=== PATIENT | male | born 1960 | race Caucasian/White ===

== ENCOUNTER 2022-09-04 16:48 | Inpatient (IN) ==
--- NOTE | 2022-09-04 17:18 | ED Triage Note ---
Date of Service September 04, 2022 History of Present Illness This patient was briefly evaluated while in triage. An abbreviated physical exam was performed. This patient is a 62-year-old Male with past medical history of pancreatic cancer who presents to the ED for evaluation of vomiting blood. He began v omiting blood this morning. He was seen at the [facility] ER this morning and discharged. He saw his oncologist today and they sent him here. Physical Exam VITALS: Vitals are noted on the nurse's note and reviewed by myself. GENERAL: This is a 62-year-old male, chronically ill appearing, cachectic. SKIN: The skin was without rashes. HEART: Regular rate and rhythm without murmurs gallops or rubs. LUNGS: Clear to auscultation bilaterally without wheezes, rales or rhonchi. ABDOMEN: Positive bowel sounds x 4. Soft, tenderness across the upper abdomen. NEURO: Patient was alert and oriented to person place and time. Initial orders for labs and / or imaging were placed and patient was placed in the waiting area until a bed is available. Please see further documentation for the full ED course.
[2022-09-04] MEDS ORDERED: SODIUM CHLORIDE 0.9% 1000ML 1,000 ML IV ONE (17:26)
[2022-09-04] MEDS ORDERED: PANTOprazole 80 MG in DEXTROSE 5% 100 ML IV STA (17:26)
[2022-09-04] MEDS ORDERED: ONDANSETRON INJ 2 MG/ML 2 ML VIAL IV STA (17:26)
[2022-09-04 17:44] LABS: Basophils # (auto) 0.06 K/uL (0-0.2); Basophils % (auto) 0.4 %; Eosinophils # (auto) 0.03 K/uL (0-0.50); Eosinophils % (auto) 0.2 %; Hematocrit (blood only) 40.8 % (42.0-52.0); Hemoglobin 13.9 g/dl (14.0-18.0); Immature Granulocytes # (auto) 0.14 K/uL (0.01-0.20); Immature Granulocytes % (auto) 0.9 %; Lymphocytes # (auto) 1.12 K/uL (1.2-3.4); Lymphocytes % (auto) 6.8 %; Mean Corpuscular Hemoglobin 27.3 pg (25.0-34.0); Mean Corpuscular Hgb Conc 34.1 g/dL (32.0-36.0); Mean Platelet Volume 11.1 fL (9.4-12.4); Monocytes # (auto) 1.49 K/uL (0.11-0.59); Neutrophils # (auto) 13.63 K/uL (1.40-6.50); Neutrophils % (auto) 82.7 %; Platelet Count 212 K/uL (130-400); RDW Coefficient of Variation 13.4 % (11.5-14.5); RDW Standard Deviation 38.9 fL (36.4-46.3); White Blood Count 16.47 K/ul (4.8-10.8)
[2022-09-04] MEDS ORDERED: MoRPHine SULFATE 4 MG/ML 1 ML CARP\\VIAL IV STA (17:44)
[2022-09-04] MEDS ORDERED: cefTRIAXone SODIUM 2,000 MG/70 ML BAG IV STA (17:45)
[2022-09-04] MEDS ORDERED: MoRPHine SULFATE 4 MG/ML 1 ML CARP\\VIAL IV PRN (17:45)
--- NOTE | 2022-09-04 17:55 | Emergency Department Note ---
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 The patient has a fairly recent diagnosis of pancreatic cancer and things have been worsening. He has had increasing epigastric abdominal pain, he has been more pale. Today he was vomiting blood. Patient had a CT of the abdomen and pelvis today in the outpatient setting. The impression showed significant interval worsening of the pancreatic malignancy along with marked worsening of hepatic metastatic disease, development of pulmonary metastatic disease, and mildly increased neoplastic retroperitoneal adenopathy. 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 The patient has been weak, he has felt worse in the last week or so. No fever, no cough or congestion. He has noticed some mild shortness of breath. He has not had black or bloody stool PMHx/PSHx: See Below SOCIAL HISTORY: See Below. PHYSICAL EXAM: GENERAL: Patient is in no acute distress. HEENT: No acute trauma, normocephalic atraumatic, mucous membranes moist, no nasal congestion. NECK: No stridor, no adenopathy, no meningismus, trachea is midline. LUNGS: Clear to auscultation bilaterally, no wheeze, no rhonchi, breath sounds equal. HEART: Without murmurs gallops or rubs, regular rate and rhythm. ABDOMEN: Soft, moderately tender in the upper portion of the abdomen, no peritonitis EXTREMITIES: No cyanosis or edema, full range of motion of all the joints without pain or difficulty, no signs for acute trauma. NEUROLOGIC: Oriented x 3, no acute motor or sensory deficits, no focal weakness. SKIN: No rash, no jaundice, no diaphoresis. Pale. DIFFERENTIAL DIAGNOSIS: Hematemesis, ulcer, varices, pancreatic cancer, bowel obstruction, anemia, electrolyte imbalance, dehydration, among others. EMERGENCY DEPARTMENT COURSE/PROCEDURES: Prior/Outside records reviewed: Referral notes. ECG per my interpretation: Indication was epigastric pain and vomiting. The ECG shows a sinus tachycardia with a rate of 102. There is some baseline artifact. There is no ST elevation, no PVCs. The QTc is 474. Continuous Cardiac Monitoring per my interpretation: An order was placed for continuous cardiac monitoring. The monitor shows a rate of 99 with normal sinus rhythm. Critical Care Note: I have personally spent 52 minutes of critical care time in the direct management of this patient. This includes bedside care, i nterpretation of diagnostic studies, and testing, discussion with consultants, patient, and family members, and other required patient management activities. This 52 minutes is in excess of all separately billable procedures. MEDICAL DECISION MAKING: There is a moderate leukocytosis, this could be consistent with infection or his pain. There is a mild anemia with a hemoglobin of 13.9. Platelet count was 212. INR slightly elevated at 1.2. The PTT was normal. Sodium was low at 130, no renal failure. There were some LFT elevations consistent with his mets to the liver. Lipase was not elevated. Urinalysis did not show infection. COVID test returned negative. Abdominal and pelvis CT from earlier today showed worsening of the patient's pancreatic cancer. There were mets to the liver and lung. There was a splenic vein thrombosis. Chest x-ray per my review did not show pneumonia or pneumothorax. No free air. On exam, the patient was somewhat pale, he was tender in the epigastrium. The patient received IV saline, 1 L. He was given IV Protonix, IV Zofran and IV morphine, he received IV ceftriaxone as antibiotic coverage. Patient presents with worsening of his pancreatic cancer. He has had hematemesis today. Hospitalization and further work-up/care is warranted. I spoke with the patient and case management, the on-call hospitalist has been consulted. DISPOSITION: Patient's findings and presentation warrant a hospital stay and further work- up/care. Past Med/Surg History Medical History Diabetes mellitus, type II Pacemaker Pancreatic cancer metastasis to liver Surgical History History of removal of cyst (2020) Back of neck Status post fine needle aspiration (08/14/22) Liver, Endoscopic Needle Aspiration + Celiac Plexus [place] [facility] [place] post rotator cuff repair Left Family History Father No problems noted. Mother Cancer patient unsure of type Sister No problems noted. Brother No problems noted. Brother No problems noted. Son No problems noted. Daughter No problems noted. Daughter No problems noted. Social History Smoking Status: Former smoker Tobacco Type: Cigarettes Age Started Using Tobacco: 15; packs per day: 1; Second Hand Exposure: Yes (parents smoked in home and ); Hx Alcohol Use: No Hx Substance Use: No Preferred Language: Finnish Visual Impairment: No Limitations Hearing Ability: Normal Medical Equipment Sales Required: No Beliefs That Will Affect Care: None marital status: Current Living Situation: Spouse and Other Current Living Situation Comment: lives with and son current occupational status: retired current occupation: Retired [employer] How many Children do You have: 3 Feels Safe at Home: Yes caffeine: No Dental Care, Regularly: No Assistive Devices: None Allergies Allergies Allergy/AdvReac Type Severity Reaction Status Date / Time No Known Drug Allergies Allergy Verified 08/27/22 13:12 Home Meds Home Medications Medication Instructions Recorded Confirmed empagliflozin 25 mg tablet 25 mg PO DAILY 08/27/22 09/04/22 (Jardiance) lisinopril 2.5 mg tablet 2.5 mg PO DAILY 08/27/22 09/04/22 lorazepam 0.5 mg tablet 0.25 mg PO BID PRN Anxiety 08/27/22 09/04/22 metformin 850 mg tablet 850 mg PO BID 08/27/22 09/04/22 nitroglycerin 0.4 mg sublingual 0.4 mg sublingual Q5M PRN Chest 08/27/22 09/04/22 tablet Pain ondansetron HCl 4 mg tablet 4 mg PO Q8H PRN Nausea 08/27/22 09/04/22 oxycodone 10 mg tablet 10 mg PO Q4H PRN pain,severe 08/27/22 09/04/22 pantoprazole 40 mg tablet,delayed 40 mg PO DAILY 08/27/22 09/04/22 release capecitabine 500 mg tablet 1,000 mg PO BID 09/04/22 09/04/22 Results & Data (ED) Vital Signs Vital Signs - 24 hr 09/04/22 17:15 09/04/22 18:08 09/04/22 17:36 Temperature 36.8 C Temperature Source Temporal Artery Scan Pulse Rate 100 H 94 H Pulse Rate from SpO2 Sensor Respiratory Rate 18 Respiratory Effort / Characteristics Non-Labored Spontaneous Respiratory Depth Normal Respiratory Pattern Regular Blood Pressure 118/67 Blood Pressure Mean 84 Blood Pressure Position Sitting Pulse Oximetry 98 96 Oxygen Delivery Method Room Air Room Air Sepsis Recent Fever Within 48 Hours No Sepsis New/Unexplained Change in Mental Status N/A Sepsis Action Taken by Nursing No Action Required 09/04/22 17:39 09/04/22 18:00 Temperature Temperature Source Pulse Rate 91 H 92 H Pulse Rate from SpO2 Sensor 91 H 91 H Respiratory Rate 25 H 35 H Respiratory Effort / Characteristics Respiratory Depth Respiratory Pattern Blood Pressure 146/77 H 139/76 Blood Pressure Mean 100 97 Blood Pressure Position Pulse Oximetry 97 95 Oxygen Delivery Method Room Air Room Air Sepsis Recent Fever Within 48 Hours Sepsis New/Unexplained Change in Mental Status Sepsis Action Taken by [facility] Medications Current Medication List: was personally reviewed by me Laboratory Data Attestation: I reviewed the patient's lab results. 09/04/22 17:29 09/04/22 17:29 Lab Results 09/04/22 09/04/22 09/04/22 Range/Units 17:29 17:29 17:29 WBC 16.47 H (4.8-10.8) K/ul RBC 5.10 (4.70-6.10) M/uL Hgb 13.9 L (14.0-18.0) g/dl Hct 40.8 L (42.0-52.0) % MCV 80.0 (80.0-100.0) fL MCH 27.3 (25.0-34.0) pg MCHC 34.1 (32.0-36.0) g/dL RDW Std Deviation 38.9 (36.4-46.3) fL RDW Coeff of [place] 13.4 (11.5-14.5) % Plt Count 212 (130-400) K/uL MPV 11.1 (9.4-12.4) fL Immature Gran % (Auto) 0.9 % Neut % (Auto) 82.7 % Lymph % (Auto) 6.8 % [place] % (Auto) 9.0 % Eos % (Auto) 0.2 % Baso % (Auto) 0.4 % Neut # (Auto) 13.63 H (1.40-6.50) K/uL Lymph # (Auto) 1.12 L (1.2-3.4) K/uL [place] # (Auto) 1.49 H (0.11-0.59) K/uL Eos # (Auto) 0.03 (0-0.50) K/uL Baso # (Auto) 0.06 (0-0.2) K/uL Immature Gran # (Auto) 0.14 (0.01-0.20) K/uL PT (9.0-12.0) Seconds INR (0.9-1.1) APTT (21.0-31.0) Seconds PTT Ratio Sodium 130 L (136-145) mmol/L Potassium 4.5 (3.5-5.1) mmol/L Chloride 94 L (98-107) mmol/L Carbon Dioxide 26 (21-32) mmol/L Anion Gap 10 (3-11) BUN 16 (6-23) mg/dl Creatinine 0.51 L (0.6-1.4) mg/dl Est Cr Clr Drug Dosing 133.8 ml/min Est GFR ( Amer) 132.6 ml/min Est GFR (Non-Af Amer) 114.4 ml/min BUN/Creatinine Ratio 31.4 H (10-20) Glucose 168 H (70-99(Fasting)) mg/dl Calcium 9.4 (8.5-10.1) mg/dl Total Bilirubin 2.0 H (0.2-1.0) mg/dl AST 50 H (13-39) U/L ALT 34 (7-52) U/L Alkaline Phosphatase 323 H (34-104) U/L Total Protein 7.8 (6.0-8.3) gm/dl Albumin 3.8 (3.4-5.0) gm/dl Globulin 4.0 (2.5-4.0) gm/dl Albumin/Globulin Ratio 1.0 (0.9-2) Lipase 33 (11-82) U/L SARS-CoV-2, RNA, NAAT (NEGATIVE) Blood Type B Positive Antibody Screen NEGATIVE 09/04/22 09/04/22 Range/Units 17:29 17:36 WBC (4.8-10.8) K/ul RBC (4.70-6.10) M/uL Hgb (14.0-18.0) g/dl Hct (42.0-52.0) % MCV (80.0-100.0) fL MCH (25.0-34.0) pg MCHC (32.0-36.0) g/dL RDW Std Deviation (36.4-46.3) fL RDW Coeff of [place] (11.5-14.5) % Plt Count (130-400) K/uL MPV (9.4-12.4) fL Immature Gran % (Auto) % Neut % (Auto) % Lymph % (Auto) % [place] % (Auto) % Eos % (Auto) % Baso % (Auto) % Neut # (Auto) (1.40-6.50) K/uL Lymph # (Auto) (1.2-3.4) K/uL [place] # (Auto) (0.11-0.59) K/uL Eos # (Auto) (0-0.50) K/uL Baso # (Auto) (0-0.2) K/uL Immature Gran # (Auto) (0.01-0.20) K/uL PT 13.0 H (9.0-12.0) Seconds INR 1.2 H (0.9-1.1) APTT 28.6 (21.0-31.0) Seconds PTT Ratio 1.0 Sodium (136-145) mmol/L Potassium (3.5-5.1) mmol/L Chloride (98-107) mmol/L Carbon Dioxide (21-32) mmol/L Anion Gap (3-11) BUN (6-23) mg/dl Creatinine (0.6-1.4) mg/dl Est Cr Clr Drug Dosing ml/min Est GFR ( Amer) ml/min Est GFR (Non-Af Amer) ml/min BUN/Creatinine Ratio (10-20) Glucose (70-99(Fasting)) mg/dl Calcium (8.5-10.1) mg/dl Total Bilirubin (0.2-1.0) mg/dl AST (13-39) U/L ALT (7-52) U/L Alkaline Phosphatase (34-104) U/L Total Protein (6.0-8.3) gm/dl Albumin (3.4-5.0) gm/dl Globulin (2.5-4.0) gm/dl Albumin/Globulin Ratio (0.9-2) Lipase (11-82) U/L SARS-CoV-2, RNA, NAAT NEGATIVE (NEGATIVE) Blood Type Antibody Screen Administered Medications Hydromorphone HCl (Hydromorphone Inj 1 Mg/Ml Syringe) 1 mg IV Q4H PRN PRN Reason: Severe Pain Stop: 09/18/22 20:37 Last Admin: 09/05/22 01:25 Dose: 1 mg Documented By: SRIKANTH Pantoprazole Sodium 40 mg/ (Dextrose) 100 mls @ 20 mls/hr IV Q5H JOSE RAUL Stop: 10/04/22 20:37 Last Admin: 09/04/22 21:54 Dose: 8 mg/hr, 20 mls/hr Documented By: SRIKANTH Sodium Chloride (Nss 1000ml) 1,000 mls @ 80 mls/hr IV .[id number] JOSE RAUL Stop: 09/05/22 21:37 Last Admin: 09/04/22 21:56 Dose: 80 mls/hr Documented By: SRIKANTH Insulin Aspart (Insulin Aspart Per Unit) 0 units SC ACHS JOSE RAUL Stop: 10/04/22 20:59 Last Admin: 09/04/22 21:04 Dose: Not Given Documented By: SRIKANTH Discontinued Medications Gabapentin (Gabapentin 300 Mg Cap) 300 mg PO NOW STA Stop: 09/04/22 19:33 Last Admin: 09/04/22 21:54 Dose: 300 mg Documented By: SRIKANTH Hydromorphone HCl (Hydromorphone Inj 1 Mg/Ml Syringe) 1 mg IV NOW STA Stop: 09/04/22 19:33 Last Admin: 09/04/22 19:41 Dose: 1 mg Documented By: JOSAFAT Sodium Chloride (Nss 1000ml) 1,000 mls @ 999 mls/hr IV .Q1H1M ONE Stop: 09/04/22 18:26 Last Infusion: 09/04/22 18:39 Dose: 0 mls/hr Documented By: Admin: 09/04/22 17:53 Dose: 999 mls/hr Documented By: CATALINA Pantoprazole Sodium 80 mg/ (Dextrose) 100 mls @ 400 mls/hr IV ONE STA Stop: 09/04/22 17:40 Last Infusion: 09/04/22 18:39 Dose: 0 mls/hr Documented By: Admin: 09/04/22 18:22 Dose: 400 mls/hr Documented By: NH Ceftriaxone Sodium (Rocephin) 2,000 mg in 70 mls @ 140 mls/hr IV NOW STA Stop: 09/04/22 18:14 Last Infusion: 09/04/22 18:39 Dose: 0 mls/hr Documented By: Admin: 09/04/22 17:53 Dose: 140 mls/hr Documented By: NH Morphine Sulfate (Morphine Sulfate 4 Mg/Ml 1 Ml Carp\Vial) 4 mg IV NOW STA Stop: 09/04/22 17:45 Last Admin: 09/04/22 17:53 Dose: 4 mg Documented By: NH Ondansetron HCl (Ondansetron Inj 2 Mg/Ml 2 Ml Vial) 4 mg IV NOW STA Stop: 09/04/22 17:27 Last Admin: 09/04/22 17:52 Dose: 4 mg Documented By: NH Imaging Data Radiologist's Impression: Chest X-Ray 09/04/22 17:19 XR chest 1V portable CLINICAL HISTORY: Hematemesis TECHNIQUE: Single frontal radiograph of the chest was obtained. Comparison: Comparison is made to PET/CT to 09/09/2022 FINDINGS: Dual lead pacemaker is seen. The cardiomediastinal silhouette is normal. The lungs are clear. No evidence of pleural effusion or pneumothorax. IMPRESSION: No acute chest disease. ACT 112: Negative or not required by law. Electronically signed by: Dain White M.D. 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
[2022-09-04 18:06] LABS: Albumin Level 3.8 gm/dl (3.4-5.0); BUN Creatinine Ratio 31.4 (10-20); Calcium 9.4 mg/dl (8.5-10.1); Creatinine Clr Calc Pharmacy 133.8 ml/min; Est GFR (African American) 132.6 ml/min; Est GFR (Non-African American) 114.4 ml/min; Potassium 4.5 mmol/L (3.5-5.1); Total Protein 7.8 gm/dl (6.0-8.3)
--- NOTE | 2022-09-04 18:15 | XRay Report ---
XR chest 1V portable CLINICAL HISTORY: Hematemesis TECHNIQUE: Single frontal radiograph of the chest was obtained. Comparison: Comparison is made to PET/CT to 09/09/2022 FINDINGS: Dual lead pacemaker is seen. The cardiomediastinal silhouette is normal. The lungs are clear. No evid ence of pleural effusion or pneumothorax. IMPRESSION: No acute chest disease. ACT 112: Negative or not required by law. Electronically signed by: Dain White M.D. 09/04/2022 6:13 PM
[2022-09-04 18:16] LABS: INR 1.2 (0.9-1.1); Partial Thromboplastin Time 28.6 Seconds (21.0-31.0)
--- NOTE | 2022-09-04 18:36 | History & Physical Report ---
Date of Service September 04, 2022 Assessment & Plan (1) Hematemesis: Plan: Patient is 62-year-old male with PMH recently diagnosed pancreatic cancer metastasis to liver diagnosed in 07/2022, DM II, s/p pacemaker presented to ER with complaint of episode of hematemesis today. Ongoing nausea, vomiting, decreased appetite, upper abdominal pain since 06/2022. Per review of [facility] ER reports. Patient's provides copy: 09/04/2022 CT abdomen pelvis with IV contrast : "Significant interval worsening of the pancreas shins primary pancreatic malignancy along with marked worsening of hepatic metastatic disease, development of pulmonary metastatic disease, and mildly increased neoplastic retroperitoneal adenopathy. Thrombosis of the splenic vein is again present mildly increased from previously." (Copy of report from [facility] ER) 09/04/2022 copy of labs with WBC: 14.5, H/H: 13.1/38.2, PLT: 191, NA: 140, lactate: 1.4, T. bili: 1.6, AST: 56, ALT: 36, alk phos: 310, lipase: 33 In ER afebrile, vital stable. H/H 13.9/40, PLT: 212, INR: 1.2, BUN: 16, Cr: 0.5, T. bili: 2.0, AST: 50, ALT: 34, alk phos: 323 In ER given 1L NSS, Protonix, Rocephin, morphine total 8 mg IV Continue Protonix IV Start gabapentin. Oxycodone as needed moderate pain, Dilaudid as needed severe pain Zofran as needed N.p.o. Gentle IVF Leukocytosis likely secondary to underlying tumor. Patient denies fever, chills, urinary symptoms. We will hold on additional antibiotics at this time Patient voices understanding of his current condition and prognosis. Is willing to have scope if necessary. Would like to avoid other invasive procedures CBC, CMP in a.m. (2) Abdominal pain: (3) Splenic vein thrombosis: (4) Pancreatic cancer: Plan: Recent diagnosis pancreatic cancer with metastasis to liver in 07/2022 Is following with oncologist, Dr. Lubin in [place]. Radiation oncology at [facility], Dr. Man Is to start receiving palliative chemotherapy and radiation on 09/09/22. Patient brought his capecitabine with him Palliative care consult Will need to consider anticoagulation. Hold currently with episode hematemesis (5) Hyponatremia: Plan: Corrected sodium of 131 Gentle IVF Monitor (6) Diabetes mellitus, type II: Plan: Has not been taking medications secondary to N/V/abdominal pain, decreased oral intake Hold home oral diabetes medicine NovoLog sliding scale per protocol A1c in a.m. (7) HTN (hypertension): Plan: Not been taking BP medication secondary to poor oral intake BP stable Hold lisinopril (8) Pacemaker: Plan: Pacemaker in place DVT Prophylaxis SCDs for now DNR/DNI as per discussion with pt Follows with PCP: [facility] for routine care Pt was seen and care coordinated with Dr Sainz. See addendum I spent a total of 75 minutes reviewing notes, outpatient records, labs, medication, coordinating, documenting and providing care for this patient exc luding time spent in the performance of separately billed services. History of Present Illness Chief Complaint: Hematemesis Primary Care Provider: Annabelle Hale PA-C Patient is 62-year-old male with PMH recently diagnosed pancreatic cancer metastasis to liver diagnosed in 07/2022, DM II, s/p pacemaker presented to ER with complaint of episode of hematemesis today. History obtained from patient, patient's and chart review. Patient states has been having nausea, intermittent vomiting, upper abdominal pain since June 2022. Often has dry heaves. Lost 35 pounds since 06/2022. He states he saw GI, Dr. Lara in [place]. reports he had a EUS to confirm diagnosis. 2 days ago did not have any vomiting, yesterday had several episodes of vomiting. He started taking oxycodone for abdominal pain. This morning had episode of vomiting with noted red blood in emesis. No further hematemesis. He has been having worsening upper abdominal pain. Not been eating or drinking. He has not been taking any medications except for oxycodone. He tried taking Zofran several days ago. Is following with oncologist, Dr. Lubin from. Following with radiation oncology at [facility], Dr. Man. Is to start receiving palliative chemotherapy and radiation on 09/09/22. Denies fever/chills, diaphoresis, melena, hematochezia, diarrhea, constipation, DUPREE, dizziness, syncope, vision changes, neck pain, CP, SOB, orthopnea, palpitations, cough, sore throat, choking, otalgia, rhinorrhea, extremity weakness, extremity edema, rashes, urinary symptoms. Today was seen at [facility] ER and had CT abdomen pelvis with IV contrast. brings copy of CT abdomen pelvis report with Impression "Significant interval worsening of the pancreas shins primary pancreatic malignancy along with marked worsening of hepatic metastatic disease, development of pulmonary metastatic disease, and mildly increased neoplastic retroperitoneal adenopathy. Thrombosis of the splenic vein is again present mildly increased from previously. Also copy of labs with WBC: 14.5, H/H: 13.1/38.2, PLT: 191, NA: 140, lactate: 1.4, T. bili: 1.6, AST: 56, ALT: 36, alk phos: 310 Patient states that they offered to transfer him to tertiary care facility however he denied. He had follow-up with his oncologist today who had recommended coming to an [facility]. Patient states is to have palliative care appointment tomorrow. Allergies Allergy/AdvReac Type Severity Reaction Status Date / Time No Known Drug Allergies Allergy Verified 08/27/22 13:12 Home Medications Medication Instructions Recorded Confirmed Type empagliflozin 25 mg tablet 25 mg PO DAILY 08/27/22 09/04/22 History (Jardiance) lisinopril 2.5 mg tablet 2.5 mg PO DAILY 08/27/22 09/04/22 History lorazepam 0.5 mg tablet 0.25 mg PO BID PRN Anxiety 08/27/22 09/04/22 History metformin 850 mg tablet 850 mg PO BID 08/27/22 09/04/22 History nitroglycerin 0.4 mg sublingual 0.4 mg sublingual Q5M PRN Chest 08/27/22 09/04/22 History tablet Pain ondansetron HCl 4 mg tablet 4 mg PO Q8H PRN Nausea 08/27/22 09/04/22 History oxycodone 10 mg tablet 10 mg PO Q4H PRN pain,severe 08/27/22 09/04/22 History pantoprazole 40 mg tablet,delayed 40 mg PO DAILY 08/27/22 09/04/22 History release capecitabine 500 mg tablet 1,000 mg PO BID 09/04/22 09/04/22 History Past Med/Surg History Medical History Diabetes mellitus, type II Pacemaker Pancreatic cancer metastasis to liver Surgical History History of removal of cyst (2020) Back of neck Status post fine needle aspiration (08/14/22) Liver, Endoscopic Needle Aspiration + Celiac Plexus Neurolysis Dr. Tricia Elam at [facility] Status post rotator cuff repair Left Family History Father No problems noted. Mother Cancer patient unsure of type Sister No problems noted. Brother No problems noted. Brother No problems noted. Son No problems noted. Daughter No problems noted. Daughter No problems noted. Social History Smoking Status: Former smoker Tobacco Type: Cigarettes Age Started Using Tobacco: 15; packs per day: 1; Second Hand Exposure: Yes (parents smoked in home and ); Hx Alcohol Use: No Hx Substance Use: No Preferred Language: Peruvian Visual Impairment: No Limitations Hearing Ability: Normal Wool Hat Hydraulicker Required: No Beliefs That Will Affect Care: None marital status: Current Living Situation: Spouse current occupational status: retired current occupation: Retired [employer] How many Children do You have: 3 Feels Safe at Home: Yes caffeine: No Dental Care, Regularly: No Assistive Devices: Glasses Review of Systems Review of Systems: All systems reviewed & are unremarkable except as noted in HPI & below Physical Exam Physical Exam: General: chronic ill appearing male, appears older than stated age, in mild distress secondary to abdominal pain, WDWN Head: normocephalic, atraumatic Eyes: conjunctiva non-injected, anicteric ENT: normal inspection external ears, nose, mucous membranes dry Neck: supple, trachea midline Lungs: clear, no respiratory distress, no wheezing/rhonchi/rales CV: RRR, no murmur, no pretibial edema Abd: normal BS, soft, +tenderness to palpation RUQ, epigastric, LUQ Ext: no cyanosis, no calf tenderness Neuro: A&O x 3, no focal deficits noted, normal affect Skin: warm, dry Results & Data Results & Data ([place]) Vital Signs (Past 12 Hours) Vital Signs Temp Pulse Resp BP Pulse Ox O2 Del Method 09/04/22 18:00 92 H 35 H 139/76 95 Room Air 09/04/22 17:39 91 H 25 H 146/77 H 97 Room Air 09/04/22 17:36 94 H 09/04/22 18:08 96 Room Air 09/04/22 17:15 36.8 C 100 H 18 118/67 98 Room Air Laboratory Results Short CBC 09/04/22 Range/Units 17:29 WBC 16.47 H (4.8-10.8) K/ul Hgb 13.9 L (14.0-18.0) g/dl Hct 40.8 L (42.0-52.0) % Plt Count 212 (130-400) K/uL BMP 09/04/22 17:29 Sodium 130 L Potassium 4.5 Chloride 94 L Carbon Dioxide 26 BUN 16 Creatinine 0.51 L Glucose 168 H Calcium 9.4 Liver Function 09/04/22 Range/Units 17:29 Total Bilirubin 2.0 H (0.2-1.0) mg/dl AST 50 H (13-39) U/L ALT 34 (7-52) U/L Alkaline Phosphatase 323 H (34-104) U/L Albumin 3.8 (3.4-5.0) gm/dl Diagnostic Findings Chest X-Ray 09/04/22 17:19 XR chest 1V portable CLINICAL HISTORY: Hematemesis TECHNIQUE: Single frontal radiograph of the chest was obtained. Comparison: Comparison is made to PET/CT to 09/09/2022 FINDINGS: Dual lead pacemaker is seen. The cardiomediastinal silhouette is normal. The lungs are clear. No evidence of pleural effusion or pneumothorax. IMPRESSION: No acute chest disease. ACT 112: Negative or not required by law. Electronically signed by: Dain White M.D. 09/04/2022 6:13 PM Supervising Physician Co-Signing Physician Notes I have seen and examined the patient and have discussed the case with the provider above. I agree with the assessment and plan as stated. Mr. Lagunas is a 62-year-old man with a recent diagnosis of metastatic pancreatic cancer. He reports ongoing bloating in his abdomen that is progressively worse and is planned to start chemotherapy and radiation on Friday. He has his oral chemo medicine with him today. The patient states that he has been using oxycodone for the pain and that he is now getting a burning sensation down his bilateral lateral hips. The pain is mostly in his back and there is upper abdominal pain as well. This morning he vomited blood one time and it was not persistent. At this time he is not nauseous but reporting some pain. He is open to doing an endoscopy but realizes the gravity of the situation. He is interested in palliative consultation. On physical exam he is ill-appearing and well-nourished well-developed. He is in no acute distress. There is significant upper abdominal pain and slight distention with no tenderness palpation of his lower abdomen. Exam is otherwise unremarkable. Work-up reveals a white blood cell count of 16,000, H&H of 14/41, normal platelets. INR is 1.2, sodium is 130, chloride 94, BUN 16, creatinine 0.51. AST is 50 ALT 34 total bilirubin is 2. Alk phos is 323. Imaging includes a chest x-ray revealing no acute chest disease. Outpatient records from [facility] ER revealed CT report showing pancreatic tail mass and a splenic vein thrombosis. 1. Metastatic pancreatic cancer with hematemesis 2. Splenic vein thrombosis, acute, secondary to malignancy 3. hyponatremia Admit patient to medicine with main goal of controlling symptoms of pain, nausea and any other discomfort. He will meet with palliative tomorrow to discuss goals of care. For now n.p.o. with IV fluids for support pending GI consult. Currently has no need for blood transfusion and has no evidence of anemia from blood loss. Will trend CBC in a.m. Will monitor on telemetry. Splenic vein thrombosis should be treated with anticoagulant therapy which is contraindicated in the setting of hematemesis. Hyponatremia is likely reflective of his poor p.o. intake today and possibly other days. Trend BMP in a.m. after IV fluids. Leukocytosis is likely reflection of tumor burden as opposed to any infection. He was given 1 dose of Rocephin in the ER. There were no infectious symptoms at this time. Hold additional antibiotics. DO Alistair
[2022-09-04] MEDS ORDERED: HYDROmorphone INJ 1 MG/ML SYRINGE IV STA (19:32)
[2022-09-04] MEDS ORDERED: GABAPENTIN 300 MG CAP PO STA (19:32)
[2022-09-04] MEDS ORDERED: GLUCAGON FOR INJ 1 MG VIAL SQ PRN (20:38)
[2022-09-04] MEDS ORDERED: POLYETHYLENE (MIRALAX) 17 GM PACK PO PRN (20:38)
[2022-09-04] MEDS ORDERED: ACETAMINOPHEN 325 MG TAB PO PRN (20:38)
[2022-09-04] MEDS ORDERED: GLUCOSE 40% GEL 15 GM TUBE PO PRN (20:38)
[2022-09-04] MEDS ORDERED: oxyCODONE HCL IR 5 MG TAB (IMMEDIATE RELEASE) PO PRN (20:38)
[2022-09-04] MEDS ORDERED: GLUCOSE 10 TAB/TUBE PO PRN (20:38)
[2022-09-04] MEDS ORDERED: CARBOHYDRATES FOR HYPOGLYCEMIA PO PRN (20:38)
[2022-09-04] MEDS ORDERED: DEXTROSE 50% 50 ML SYRINGE IV PRN (20:38)
[2022-09-04] MEDS ORDERED: ONDANSETRON INJ 2 MG/ML 2 ML VIAL IV PRN (20:38)
[2022-09-04] MEDS: INSULIN ASPART PER UNIT SC SCH (21:04)
[2022-09-04] MEDS: PANTOprazole 40 MG in DEXTROSE 5% 100 ML IV SCH (21:54)
[2022-09-04] MEDS: SODIUM CHLORIDE 0.9% 1000ML 1,000 ML IV SCH (21:56)
[2022-09-04 22:24] LABS: Appearance Urine Clear (Clear); Bacteria Urine Automated Negative (Negative); Blood Urine Negative (Negative); Color Urine Orange; Glucose Urine UA Negative (Negative); Ketones Urine 3+ (Negative); Leukocyte Esterase Urine Trace (Negative); Nitrite Urine Positive (Negative); Protein Urine 1+ (Negative); RBC Urine Automated 0-4 /hpf (0-4); Specific Gravity Urine > 1.045 (1.000-1.030); Urobilinogen Urine Positive (Negative); pH Urine 6.5 (4.5-7.5)
[2022-09-04 22:25] LABS: Bilirubin Urine 2+ (Negative)
[2022-09-05] MEDS: HYDROmorphone INJ 1 MG/ML SYRINGE IV PRN ×6 (01:25→22:15)
[2022-09-05] MEDS: PANTOprazole 40 MG in DEXTROSE 5% 100 ML IV SCH ×5 (02:25→23:14)
[2022-09-05] MEDS: GABAPENTIN 300 MG CAP PO SCH ×2 (07:47→20:12)
[2022-09-05 07:53] LABS: Basophils # (auto) 0.03 K/uL (0-0.2); Basophils % (auto) 0.3 %; Eosinophils # (auto) 0.05 K/uL (0-0.50); Eosinophils % (auto) 0.5 %; Hematocrit (blood only) 33.5 % (42.0-52.0); Hemoglobin 11.3 g/dl (14.0-18.0); Immature Granulocytes # (auto) 0.06 K/uL (0.01-0.20); Immature Granulocytes % (auto) 0.6 %; Lymphocytes # (auto) 0.89 K/uL (1.2-3.4); Lymphocytes % (auto) 9.1 %; Mean Corpuscular Hgb Conc 33.7 g/dL (32.0-36.0); Monocytes # (auto) 0.87 K/uL (0.11-0.59); Monocytes % (auto) 8.9 %; Neutrophils # (auto) 7.84 K/uL (1.40-6.50); Neutrophils % (auto) 80.6 %; Platelet Count 149 K/uL (130-400); RDW Coefficient of Variation 13.6 % (11.5-14.5); RDW Standard Deviation 39.3 fL (36.4-46.3); Red Blood Count 4.19 M/uL (4.70-6.10); White Blood Count 9.74 K/ul (4.8-10.8)
[2022-09-05] MEDS: INSULIN ASPART PER UNIT SC SCH ×4 (08:09→20:11)
[2022-09-05 08:29] LABS: Albumin Globulin Ratio 0.8 (0.9-2); Albumin Level 2.6 gm/dl (3.4-5.0); BUN Creatinine Ratio 26.7 (10-20); Bilirubin Direct 0.7 mg/dl (0-0.2); Bilirubin,Total 1.3 mg/dl (0.2-1.0); Calcium 8.1 mg/dl (8.5-10.1); Creatinine Clr Calc Pharmacy 151.6 ml/min; Est GFR (African American) 139.6 ml/min; Est GFR (Non-African American) 120.4 ml/min; Globulin 3.4 gm/dl (2.5-4.0)
--- NOTE | 2022-09-05 10:02 | Gastrointestinal Consultation ---
Date of Consultation September 05, 2022 History of Present Illness Reason for Consultation: Hematemesis Requesting Physician: Sabino Attending Physician: Tyra Young MD History of Present Illness Mr. Michael Lagunas is a 62 yr old male pt of MEGGAN Nelson a hx of metastatic pancreatic cancer which was dx'ed by liver bx at [facility] He reports ongoing upper abd pain across both sides along the lower ribs, radiating to the mid back, also bloating. Chemotherapy and radiation are planned to begin on Friday. Yesterday morning, he felt nauseated which he thinks is from pain pills. He had dry heaving and brought up a little bit of liquid with that he thinks probably about a shot glass size amount of bright red blood. He did not have any change in his abdominal pain at the time of the emesis. On arrival, hemoglobin was 13.9->11.3 this morning. BUN has remained normal. Na is 130. INR is 1.1. He is not on any antiplatelet or anticoagulants. He denies any red/black BMs. Allergies Allergy/AdvReac Type Severity Reaction Status Date / Time No Known Drug Allergies Allergy Verified 08/27/22 13:12 Home Medications Medication Instructions Recorded Confirmed Type empagliflozin 25 mg tablet 25 mg PO DAILY 08/27/22 09/04/22 History (Jardiance) lisinopril 2.5 mg tablet 2.5 mg PO DAILY 08/27/22 09/04/22 History lorazepam 0.5 mg tablet 0.25 mg PO BID PRN Anxiety 08/27/22 09/04/22 History metformin 850 mg tablet 850 mg PO BID 08/27/22 09/04/22 History nitroglycerin 0.4 mg sublingual 0.4 mg sublingual Q5M PRN Chest 08/27/22 09/04/22 History tablet Pain ondansetron HCl 4 mg tablet 4 mg PO Q8H PRN Nausea 08/27/22 09/04/22 History oxycodone 10 mg tablet 10 mg PO Q4H PRN pain,severe 08/27/22 09/04/22 History pantoprazole 40 mg tablet,delayed 40 mg PO DAILY 08/27/22 09/04/22 History release capecitabine 500 mg tablet 1,000 mg PO BID 09/04/22 09/04/22 History Patient History Medical History Diabetes mellitus, type II Pacemaker Pancreatic cancer metastasis to liver Surgical History History of removal of cyst (2020) Back of neck Status post fine needle aspiration (08/14/22) Liver, Endoscopic Needle Aspiration + Celiac Plexus Neurolysis Dr. Tricia Elam at [facility] Status post rotator cuff repair Left Family History Father No problems noted. Mother Cancer patient unsure of type Sister No problems noted. Brother No problems noted. Brother No problems noted. Son No problems noted. Daughter No problems noted. Daughter No problems noted. Social History Smoking Status: Former smoker Tobacco Type: Cigarettes Age Started Using Tobacco: 15; packs per day: 1; Second Hand Exposure: Yes (parents smoked in home and ); Hx Alcohol Use: No Hx Substance Use: No Preferred Language: Georgian Visual Impairment: No Limitations Hearing Ability: Normal Account Processor Required: No Beliefs That Will Affect Care: None marital status: Current Living Situation: Spouse and Other Current Living Situation Comment: lives with and son current occupational status: retired current occupation: Retired [employer] How many Children do You have: 3 Feels Safe at Home: Yes caffeine: No Dental Care, Regularly: No Assistive Devices: None Results & Data ([facility]) Vital Signs (Past 12 Hours) Vital Signs Temp Pulse Pulse Resp BP Pulse Ox O2 Del Method 09/05/22 08:20 36.9 C 86 18 126/73 95 Room Air 09/05/22 07:58 Room Air 09/05/22 07:18 88 09/05/22 02:54 36.9 C 89 16 135/69 96 Room Air 09/04/22 23:14 37.2 C 86 18 145/74 H 97 Room Air 09/04/22 22:15 85
--- NOTE | 2022-09-05 10:08 | Electrocardiogram Report ---
Test Reason : Blood Pressure : / mmHG Vent. Rate : 102 BPM Atrial Rate : 102 BPM P-R Int : 142 ms QRS Dur : 078 ms QT Int : 364 ms P-R-T Axes : 061 040 060 degrees QTc Int : 474 ms Poor data quality, interpretation may be adversely affected Sinus tachycardia Otherwise normal ECG No previous ECGs available Confirmed by Ata Brewer ([id number]) on 09/05/2022 10:08:37 AM Referred By: REFERRED SELF Confirmed By:Tyler Brewer
[2022-09-05] MEDS: SODIUM CHLORIDE 0.9% 1000ML 1,000 ML IV SCH (10:17)
--- NOTE | 2022-09-05 11:10 | Gastrointestinal Consultation ---
Date of Consultation September 05, 2022 Assessment & Plan (1) Hematemesis: -Continue IV Protonix gtt -Keep NPO for EGD today -Continue to monitor H/H and for further s/s of GI bleeding (2) Pancreatic cancer: With mets noted in liver, lungs, & retroperitoneum. -Palliative consult pending -Follows with oncology History of Present Illness Reason for Consultation: Hematemesis Attending Physician: Tyra Young MD History of Present Illness Patient is a 62 yo male with PMH of widely metastatic pancreatic cancer found in July 2022. He presented to the ED with an episode of hematemesis. This has not happened again. He notes approximately 1 oz of bloody emesis. He has been having a myriad of GI symptoms since prior to his diagnosis including nausea, intermittent vomiting, & epigastric pain. There has been significant weight loss. He receives his GI care through [facility] at [place]. He had an EUS 2 weeks ago to confirm his diagnosis of pancreatic cancer. He was supposed to meet with his oncologist today and had plans for palliative chemo & radiation to begin next week. He was seen yesterday at the ER in [facility] and was found to have worsening metastatic disease. Originally his disease had metastasized to the liver, but based on updated imaging it appears he has had in terval worsening of his pancreatic malignancy with hepatic mets, pulmonary mets, & increased neoplastic retroperitoneal adenopathy. There was finding of a splenic vein thrombosis as well. [facility] wanted to transfer him to a tertiary facility. He declined. His oncologist recommended admission when he presented for his appointment. He was planned for palliative care evaluation on 09/05/22. H/H 11.3/33.5. BUN 12/Cr 0.45. No heartburn or reflux. He takes Protonix 40 mg daily at home. Allergies Allergy/AdvReac Type Severity Reaction Status Date / Time No Known Drug Allergies Allergy Verified 08/27/22 13:12 Home Medications Medication Instructions Recorded Confirmed Type empagliflozin 25 mg tablet 25 mg PO DAILY 08/27/22 09/04/22 History (Jardiance) lisinopril 2.5 mg tablet 2.5 mg PO DAILY 08/27/22 09/04/22 History lorazepam 0.5 mg tablet 0.25 mg PO BID PRN Anxiety 08/27/22 09/04/22 History metformin 850 mg tablet 850 mg PO BID 08/27/22 09/04/22 History nitroglycerin 0.4 mg sublingual 0.4 mg sublingual Q5M PRN Chest 08/27/2209/04 History tablet Pain ondansetron HCl 4 mg tablet 4 mg PO Q8H PRN Nausea 08/27/22 09/04/22 History oxycodone 10 mg tablet 10 mg PO Q4H PRN pain,severe 08/27/22 09/04/22 History pantoprazole 40 mg tablet,delayed 40 mg PO DAILY 08/27/22 09/04/22 History release capecitabine 500 mg tablet 1,000 mg PO BID 09/04/22 09/04/22 History Patient History Medical History Diabetes mellitus, type II Pacemaker Pancreatic cancer metastasis to liver Surgical History History of removal of cyst (2020) Back of neck Status post fine needle aspiration (08/14/22) Liver, Endoscopic Needle Aspiration + Celiac Plexus Neurolysis Dr. Tricia Elam at [facility] Status post rotator cuff repair Left Family History Father No problems noted. Mother Cancer patient unsure of type Sister No problems noted. Brother No problems noted. Brother No problems noted. Son No problems noted. Daughter No problems noted. Daughter No problems noted. Social History Smoking Status: Former smoker Tobacco Type: Cigarettes Age Started Using Tobacco: 15; packs per day: 1; Second Hand Exposure: Yes (parents smoked in home and ); Hx Alcohol Use: No Hx Substance Use: No Preferred Language: Moldovan Visual Impairment: No Limitations Hearing Ability: Normal Nutrition Consultant Required: No Beliefs That Will Affect Care: None marital status: Current Living Situation: Spouse and Other Current Living Situation Comment: lives with and son current occupational status: retired current occupation: Retired [employer] How many Children do You have: 3 Feels Safe at Home: Yes caffeine: No Dental Care, Regularly: No Assistive Devices: None Review of Systems Constitutional: + weight loss; no fever and no chills Respiratory: no cough and no dyspnea Cardiovascular: no chest pain Gastrointestinal: + hematemesis Integumentary: no problem reported Psychiatric: no problem reported Physical Exam Constitutional: + ill appearing Respiratory: normal respiratory effort Cardiovascular: RRR, no murmur, no edema Gastrointestinal (Abdomen): Inspection/Auscultation: abdomen normal to inspection Percussion/Palpation: abdomen soft; abdomen nontender Psychiatric: Orientation: alert and oriented x 3 Results & Data ([facility]) Vital Signs (Past 12 Hours) Vital Signs Temp Pulse Pulse Resp BP Pulse Ox O2 Del Method 09/05/22 08:20 36.9 C 86 18 126/73 95 Room Air 09/05/22 07:58 Room Air 09/05/22 07:18 88 09/05/22 02:54 36.9 C 89 16 135/69 96 Room Air 09/04/22 23:14 37.2 C 86 18 145/74 H 97 Room Air PG Care Time/CCT Total # of Minutes Spent Total Time Spent with Patient: Total time spent is greater than 50% in coordination of care (as documented) at patient's floor/unit and/or counseling patient: Coding Level of Care Code INP/OBS CONSULT LVL 4, 60 MIN Diagnoses Hematemesis K92.0 Nausea presence: with nausea Pancreatic cancer C25.9 (1) Hematemesis Nausea presence: with nausea Qualified Code(s): K92.0 - Hematemesis
[2022-09-05 11:36] LABS: Estimated Average Glucose 226 mg/dl; Hemoglobin A1C 9.5 % (4.5-5.6)
--- NOTE | 2022-09-05 11:55 | Anesthesiology Consultation ---
Date of Service September 05, 2022 Assessment & Plan Chart Review Chart Review: Acceptable Risk for Surgery Consults Requested none History Surgery Operation Date: 09/05/22 18:00 Proposed Procedures p Esophagogastroduodenoscopy Dr. Сергей Rushing MD Height/Weight Height: 5 ft 6 in Weight: 70.1 kg Allergies Allergy/AdvReac Type Severity Reaction Status Date / Time No Known Drug Allergies Allergy Verified 08/27/22 13:12 Medications Home Medications Medication Instructions Recorded Confirmed Last Taken empagliflozin 25 mg tablet 25 mg PO DAILY 08/27/22 09/04/22 Unknown (Jardiance) lisinopril 2.5 mg tablet 2.5 mg PO DAILY 08/27/22 09/04/22 Unknown lorazepam 0.5 mg tablet 0.25 mg PO BID PRN Anxiety 08/27/22 09/04/22 Unknown metformin 850 mg tablet 850 mg PO BID 08/27/22 09/04/22 Unknown nitroglycerin 0.4 mg sublingual 0.4 mg sublingual Q5M PRN Chest 08/27/22 09/04/22 Unknown tablet Pain ondansetron HCl 4 mg tablet 4 mg PO Q8H PRN Nausea 08/27/22 09/04/22 Unknown oxycodone 10 mg tablet 10 mg PO Q4H PRN pain,severe 08/27/22 09/04/22 09/03/22 pantoprazole 40 mg tablet,delayed 40 mg PO DAILY 08/27/22 09/04/22 Unknown release capecitabine 500 mg tablet 1,000 mg PO BID 09/04/22 09/04/22 Unknown Active Medications Generic Name Dose Route Start Last Admin Trade Name Bibiana PRN Reason Stop Dose Admin Gabapentin 300 mg 09/05/22 09:00 09/05/22 07:47 Gabapentin 300 Mg Cap PO 10/05/22 08:59 300 mg BID JOSE RAUL Administration Hydromorphone HCl 1 mg 09/04/22 20:38 09/05/22 10:14 Hydromorphone Inj 1 Mg/Ml Syringe IV 09/18/22 20:37 1 mg Q4H PRN Administration Severe Pain Pantoprazole Sodium 40 mg/ 100 mls @ 20 mls/hr 09/04/22 20:38 09/05/22 07:09 Dextrose IV 10/04/22 20:37 8 mg/hr Q5H JOSE RAUL 20 mls/hr Administration 8 MG/HR Sodium Chloride 1,000 mls @ 80 mls/hr 09/04/22 20:38 09/05/22 10:17 Nss 1000ml IV 09/05/22 21:37 80 mls/hr .[id number] JOSE RAUL Administration Insulin Aspart 0 units 09/04/22 21:00 09/05/22 08:09 Insulin Aspart Per Unit SC 10/04/22 20:59 1 units ACHS JOSE RAUL Administration NPO Date Last Intake of Fluids: 09/05/22 Time Last Intake of Fluids: 09:00 Last Intake of Fluids Comment: sip with med Date Last Intake of Solids: 08/22/22 Past Medical History Medical History Diabetes mellitus, type II Pacemaker Pancreatic cancer metastasis to liver Past Family History Family History Father No problems noted. Mother Cancer patient unsure of type Sister No problems noted. Brother No problems noted. Brother No problems noted. Son No problems noted. Daughter No problems noted. Daughter No problems noted. Past Surgical History Surgical History History of removal of cyst (2020) Back of neck Status post fine needle aspiration (08/14/22) Liver, Endoscopic Needle Aspiration + Celiac Plexus Neurolysis [place] [facility] [place] post rotator cuff repair Left Social History Smoking Status: Former smoker Hx Alcohol Use: No Hx Substance Use: No Physical Exam Vital Signs Last Vital Signs Temp 36.5 C 09/05/22 11:44 Pulse 89 09/05/22 11:44 Resp 18 09/05/22 11:44 BP 135/79 09/05/22 11:44 Pulse Ox 95 09/05/22 11:44 O2 Del Method Room Air 09/05/22 11:44 Testing Laboratory Results 09/05/22 07:22 09/05/22 07:22 PT 13.0 Seconds (9.0-12.0) H 09/04/22 17:29 INR 1.2 (0.9-1.1) H 09/04/22 17:29 APTT 28.6 Seconds (21.0-31.0) 09/04/22 17:29 Hemoglobin A1c 9.5 % (4.5-5.6) H 09/05/22 07:22 Urine Color [place] 09/04/22 22:07 Urine Appearance Clear (Clear) 09/04/22 22:07 Urine pH 6.5 (4.5-7.5) 09/04/22 22:07 Ur Specific [place] > 1.045 (1.000-1.030) H 09/04/22 22:07 Urine Protein 1+ (Negative) H 09/04/22 22:07 Urine Glucose (UA) Negative (Negative) 09/04/22 22:07 Urine Ketones 3+ (Negative) H 09/04/22 22:07 Urine Nitrite Positive (Negative) A 09/04/22 22:07 Ur Leukocyte Esterase Trace (Negative) H 09/04/22 22:07 Urine WBC (Auto) 1-5 /hpf (0-5) 09/04/22 22:07 Urine RBC (Auto) 0-4 /hpf (0-4) 09/04/22 22:07 U Hyaline Cast (Auto) 1-5 /lpf (0-5) 09/04/22 22:07 U Epithel Cells (Auto) 5-10 /lpf (0-5) H 09/04/22 22:07 Urine Bacteria (Auto) Negative (Negative) 09/04/22 22:07 Blood Type B Positive 09/04/22 17:29 Antibody Screen NEGATIVE 09/04/22 17:29 09/05/22 07:54 POC Glucose 161 H
--- NOTE | 2022-09-05 13:27 | GI REPORT ---
Patient Name: Michael Lagunas Procedure Date: 09/05/2022 12:44 PM Date of : 1960 Admit Type: Inpatient Age: 62 Gender: Male Attending MD: Edinson Rushing MD, Procedure: Upper GI endoscopy Providers: Edinson Rushing MD Referring MD: Tyra Young Md Indications: Hematemesis Medicines: Monitored Anesthesia Care Complications: No immediate complications. Estimated blood loss: None. Estimated Blood Loss: Estimated blood loss: none. Procedure: Pre-Anesthesia Assessment: - Prior Anticoagulants: The patient has taken no anticoagulant or antiplatelet agents. - ASA Grade Assessment: II - A patient with mild systemic disease. After obtaining informed consent, the endoscope was passed under direct vision. Throughout the procedure, the patient's blood pressure, pulse, and oxygen saturations were monitored continuously. The Endoscope was introduced through the mouth, and advanced to the second part of duodenum. The upper GI endoscopy was accomplished without difficulty. The patient tolerated the procedure well. Findings: The examined esophagus was normal. Diffuse mild inflammation characterized by erythema was found in the stomach. One non-bleeding linear duodenal ulcer with no stigmata of bleeding was found in the duodenal bulb. Diffuse mild inflammation characterized by erythema was found in the duodenal bulb. no evidence of blood throughout exam. Impression: - Normal esophagus. - Gastritis. - Non-bleeding duodenal ulcer with no stigmata of bleeding. - Duodenitis. - No specimens collected. Recommendation: - Return patient to hospital [facility] for ongoing care. - Resume previous diet today. -protonix 40 mg BID for 3 months then daily thereafter. supportive care Edinson Rushing MD 09/05/2022 1:26:58 PM This report has been signed electronically. Note Initiated On: 09/05/2022 12:44 PM Number of Addenda: 0 I attest to the content of the Intraoperative Record and orders documented therein, exceptions below {[id number]}
[2022-09-05 15:25] LABS: Hematocrit (blood only) 35.4 % (42.0-52.0); Hemoglobin 11.7 g/dl (14.0-18.0)
--- NOTE | 2022-09-05 18:02 | Hospitalist Progress Note ---
Date of Service September 05, 2022 Assessment & Plan (1) Hematemesis: (2) 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 Ongoing nausea, vomiting, decreased appetite, upper abdominal pain since 06/2022. He is being managed for the following: Hematemesis: 09/04/2022 CT abdomen pelvis with IV contrast : "Significant interval worsening of the pancreas shins primary pancreatic malignancy along with marked worsening of hepatic metastatic disease, development of pulmonary metastatic disease, and mildly increased neoplastic retroperitoneal adenopathy. Thrombosis of the splenic vein is again present mildly increased from previously." (Copy of re port from [facility] ER) 09/04/2022 copy of labs with WBC: 14.5, H/H: 13.1/38.2, PLT: 191, NA: 140, lactate: 1.4, T. bili: 1.6, AST: 56, ALT: 36, alk phos: 310, lipase: 33 At presentation in ER, vital stable. H/H 13.9/40, PLT: 212, INR: 1.2, BUN: 16, Cr: 0.5, T. bili: 2.0, AST: 50, ALT: 34, alk phos: 323 Pt w/ no further hematemesis, HnH stable around 11.5, c/w protonix gtt GI evaled, s/p EGD 09/05 w/ finding of nl esophagus, gastritis +, duodenitis +, non bleeding duodenal ulcer. Rec is bid protonix for 3 months. follow HnH every 12 hours or as needed, on clear liq diet, adv diet as elsie, use nausea meds prn. Abdominal pain: Splenic vein thrombosis: Pancreatic cancer: Recent diagnosis pancreatic cancer with metastasis to liver in 07/2022 Is following with oncologist, Dr. Lubin in [place]. Radiation oncology at [facility], Dr. Man Is to start receiving palliative chemotherapy and radiation on 09/09/22. Patient brought his capecitabine with him Palliative care consult Since EGD showed no varices or bleeding point, and pt w/ no further hematemesis and Hb stable, will start heparin drip, monitor HnH closely. c/w pain Mx. (5) Hyponatremia: likely 2/2 poor appetite, monitor. (6) Diabetes mellitus, type II: Plan: Has not been taking medications secondary to N/V/abdominal pain, decreased oral intake Hold home oral diabetes medicine NovoLog sliding scale per protocol A1c in a.m. (7) HTN (hypertension): Plan: Not been taking BP medication secondary to poor oral intake BP stable Hold lisinopril (8) Pacemaker: Plan: Pacemaker in place DVT Prophylaxis SCDs for now DNR/DNI Follows with PCP: [facility] for routine care Dispo: pending palliative eval, will need oral anticoagulation on DC, pending HnH stability on anticoagulation. Admission and Anticipated Discharge Date Admission Date: September 04, 2022 Subjective Patient seen and examined at bedside as a follow-up of hematemesis on the background of metastatic pancreatic cancer. Patient was lying in bed, on room air, NAD, reports no new acute event overnight, reports pain over the side of his belly/lower rib cage and was awaiting his pain medication, denies any further vomiting while in the hospital, reports some nausea and dry heaves, denies headache or dizziness, denies pain or burning while passing urine or fever, reports decreased appetite, but patient was n.p.o. during bedside exam for GI eval, already started on diet by now after scope. Physical Exam Physical Exam: GENERAL: Alert and oriented x3. NAD, on RA. Chronically ill/weak appearing. HEENT: No pallor, no icterus. Pupils equal, round and reactive to light. Oral mucosa moist. NECK: No JVD, no neck masses. HEART: S1 and S2 heard. Regular rate and rhythm. No murmur, no gallop. RESPIRATORY SYSTEM: Normal AP diameter. No accessory muscle use. No wheezing, no crackles. ABDOMEN: Soft, bowel sounds present, tender RUQ/Epigastric/LUQ, no distention. CENTRAL NERVOUS SYSTEM: No facial droop. Speech is clear. Obeys simple commands. Moves extremities. EXTREMITIES: No edema, no erythema seen. Results & Data Results & Data ([facility]) Vital Signs (Past 12 Hours) Vital Signs Temp Pulse Pulse Resp BP Pulse Ox O2 Del Method 09/05/22 15:46 36.8 C 93 H 18 132/78 96 Room Air 09/05/22 15:38 91 H 09/05/22 14:08 37.1 C 95 H 18 145/83 H 97 Room Air 09/05/22 13:41 86 18 136/77 96 Room Air 09/05/22 13:32 88 16 130/73 96 Room Air 09/05/22 13:18 85 16 117/70 99 Room Air 09/05/22 11:44 36.5 C 89 18 135/79 95 Room Air 09/05/22 11:38 36.8 C 89 18 133/75 94 Room Air 09/05/22 08:20 36.9 C 86 18 126/73 95 Room Air 09/05/22 07:58 Room Air 09/05/22 07:18 88 (1) Hematemesis Nausea presence: with nausea Qualified Code(s): K92.0 - Hematemesis
[2022-09-05] MEDS ORDERED: Heparin IV Adult Wt-Based Standard *NO* Bolus Protocol IV SCH (18:23)
[2022-09-05 21:39] LABS: Partial Thromboplastin Ratio 1.1; Partial Thromboplastin Time 30.6 Seconds (21.0-31.0)
[2022-09-05] MEDS: HEPARIN SODIUM/DEXTROSE 25,000 UNITS/500 ML BAG IV SCH (21:53)
[2022-09-06] MEDS: HYDROmorphone INJ 1 MG/ML SYRINGE IV PRN ×5 (02:15→19:40)
[2022-09-06] MEDS: PANTOprazole 40 MG in DEXTROSE 5% 100 ML IV SCH ×3 (03:54→14:47)
[2022-09-06 04:21] LABS: Hematocrit (blood only) 30.6 % (42.0-52.0); Hemoglobin 10.5 g/dl (14.0-18.0); Mean Corpuscular Hemoglobin 27.2 pg (25.0-34.0); Mean Corpuscular Hgb Conc 34.3 g/dL (32.0-36.0); Mean Corpuscular Volume 79.3 fL (80.0-100.0); Mean Platelet Volume 10.9 fL (9.4-12.4); Platelet Count 142 K/uL (130-400); RDW Coefficient of Variation 13.5 % (11.5-14.5); RDW Standard Deviation 38.5 fL (36.4-46.3); Red Blood Count 3.86 M/uL (4.70-6.10); White Blood Count 9.72 K/ul (4.8-10.8)
[2022-09-06 04:36] LABS: Alanine Aminotransferase 20 U/L (7-52); Albumin Globulin Ratio 0.8 (0.9-2); Albumin Level 2.6 gm/dl (3.4-5.0); Alkaline Phosphatase 201 U/L (34-104); Anion Gap 5 (3-11); Aspartate Aminotransferase 33 U/L (13-39); BUN Creatinine Ratio 22.9 (10-20); Bilirubin,Total 1.2 mg/dl (0.2-1.0); Blood Urea Nitrogen 8 mg/dl (6-23); Calcium 7.9 mg/dl (8.5-10.1); Carbon Dioxide 25 mmol/L (21-32); Chloride 97 mmol/L (98-107); Creatinine Clr Calc Pharmacy 194.9 ml/min; Est GFR (African American) > 150.0 ml/min; Est GFR (Non-African American) 133.6 ml/min; Globulin 3.1 gm/dl (2.5-4.0); Glucose 178 mg/dl (70-99(Fasting)); Magnesium 1.8 mg/dl (1.7-2.4); Phosphorus 2.2 mg/dl (2.5-4.9); Potassium 3.8 mmol/L (3.5-5.1); Sodium 127 mmol/L (136-145); Total Protein 5.7 gm/dl (6.0-8.3)
[2022-09-06 04:51] LABS: Partial Thromboplastin Ratio 1.4; Partial Thromboplastin Time 38.3 Seconds (21.0-31.0)
[2022-09-06] MEDS: INSULIN ASPART PER UNIT SC SCH ×4 (08:29→21:40)
[2022-09-06] MEDS: GABAPENTIN 300 MG CAP PO SCH ×2 (08:39→21:37)
[2022-09-06] MEDS: POT PHOSPHATE MONOBASIC W/ SOD TAB PO SCH ×4 (10:01→21:37)
--- NOTE | 2022-09-06 11:53 | Communication Note ---
Date of Service: September 06, 2022 Patient is a 62 yo male with hematemesis who had an EGD on 09/05/22 that indicated gastritis and a duodenal ulcer. He had black stool on 09/05/22, but no further GI bleeding at this time. As per the recommendations on the EGD report from 09/05/22, he should continue Protonix 40 mg BID x 3 months, then once daily thereafter.
[2022-09-06 12:17] LABS: Partial Thromboplastin Ratio 1.3; Partial Thromboplastin Time 36.7 Seconds (21.0-31.0)
[2022-09-06] MEDS ORDERED: HEPARIN SOD (PORCINE) 1000 UNIT/ML IV ONE (13:30)
--- NOTE | 2022-09-06 14:52 | Hospitalist Progress Note ---
Date of Service September 06, 2022 Assessment & Plan (1) Hematemesis: (2) 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 Ongoing nausea, vomiting, decreased appetite, upper abdominal pain since 06/2022. He is being managed for the following: Hematemesis: 09/04/2022 CT abdomen pelvis with IV contrast : "Significant interval worsening of the pancreas shins primary pancreatic malignancy along with marked worsening of hepatic metastatic disease, development of pulmonary metastatic disease, and mildly increased neoplastic retroperitoneal adenopathy. Thrombosis of the splenic vein is again present mildly increased from previously." (Copy of re port from [facility] ER) 09/04/2022 copy of labs with WBC: 14.5, H/H: 13.1/38.2, PLT: 191, NA: 140, lactate: 1.4, T. bili: 1.6, AST: 56, ALT: 36, alk phos: 310, lipase: 33 At presentation in ER, vital stable. H/H 13.9/40, PLT: 212, INR: 1.2, BUN: 16, Cr: 0.5, T. bili: 2.0, AST: 50, ALT: 34, alk phos: 323 Pt w/ no further hematemesis, HnH stable around 11.0, protonix gtt to PO protonix. GI evaled, s/p EGD 09/05 w/ finding of nl esophagus, gastritis +, duodenitis +, non bleeding duodenal ulcer. Rec is bid protonix for 3 months and then daily. follow HnH every 12 hours or as needed, on full liq diet, adv diet as elsie, use nausea meds prn. Abdominal pain: Splenic vein thrombosis: Pancreatic cancer: Recent diagnosis pancreatic cancer with metastasis to liver in 07/2022 Is following with oncologist, Dr. Lubin in [place]. Radiation oncology at [facility], Dr. Man Is to start receiving palliative chemotherapy and radiation on 09/09/22. Patient brought his capecitabine with him Palliative care consult, await recs hep drip started 09/05, lurdes sent to pharmacy for cost eval. c/w pain Mx. (5) Hyponatremia: likely 2/2 poor appetite, monitor. (6) Diabetes mellitus, type II: Plan: Has not been taking medications secondary to N/V/abdominal pain, decreased oral intake Hold home oral diabetes medicine NovoLog sliding scale per protocol A1c in a.m. (7) HTN (hypertension): Plan: Not been taking BP medication secondary to poor oral intake BP stable Hold lisinopril (8) Pacemaker: Plan: Pacemaker in place DVT Prophylaxis SCDs for now DNR/DNI Follows with PCP: [facility] for routine care Dispo: pending palliative eval, will need oral anticoagulation on DC. Admission and Anticipated Discharge Date Admission Date: September 04, 2022 Subjective Patient seen and examined at bedside as a follow-up of hematemesis on the background of metastatic pancreatic cancer. Patient was lying in bed, on room air, NAD, reports no new acute event overnight, reports pain over the side of his belly/lower rib cage bearable and under control, denies any further vomiting while in the hospital, reports no nausea and small improvement in diet, denies headache or dizziness, denies pain or burning while passing urine or fever. Physical Exam Physical Exam: GENERAL: Alert and oriented x3. NAD, on RA. Chronically ill/weak appearing. HEENT: No pallor, no icterus. Pupils equal, round and reactive to light. Oral mucosa moist. NECK: No JVD, no neck masses. HEART: S1 and S2 heard. Regular rate and rhythm. No murmur, no gallop. RESPIRATORY SYSTEM: Normal AP diameter. No accessory muscle use. No wheezing, no crackles. ABDOMEN: Soft, bowel sounds present, tender RUQ/Epigastric/LUQ, no distention. CENTRAL NERVOUS SYSTEM: No facial droop. Speech is clear. Obeys simple commands. Moves extremities. EXTREMITIES: No edema, no erythema seen. Results & Data Results & Data ([facility]) Vital Signs (Past 12 Hours) Vital Signs Temp Pulse Resp BP Pulse Ox O2 Del Method 09/06/22 11:06 37.1 C 91 H 18 111/65 93 Room Air 09/06/22 06:37 36.8 C 88 16 131/70 93 Room Air 09/06/22 03:41 37.1 C 82 16 125/60 94 Room Air (1) Hematemesis Nausea presence: with nausea Qualified Code(s): K92.0 - Hematemesis
--- NOTE | 2022-09-06 15:46 | Palliative Care Consultation ---
Date of Consultation September 06, 2022 Assessment & Plan (1) Palliative care encounter: Met with pt at bedside. Provided overview of Palliative Medicine, a subspecialty that provides specialized medical care for people living with a serious illness by offering a focus on quality of life. Palliative Medicine is often conflated with hospice: I advised patient/family that Palliative and hospice can be partners but we are not the same. It is important to understand the difference so that we may be informed, and not afraid. Palliative Medicine works to improve QOL through reduction of symptom burden/more control over their illness, for both the patient and family. Palliative medicine clinicians are board certified, specially-trained and another member of the patient's medical care team. We often provide an extra layer of support because our care is based on the needs of the patient, not the prognosis; as such, it's appropriate at any age/advancing stage of a serious illness and can be provided along with curative treatment. Palliative Medicine clinicians are also trained in advanced communication methodologies, to facilitate complex discussions about advanced illness planning, which are needed to help assure that the treatment choices match the patient's goals, aka delivering Goal Concordant care. Finally, we discussed that hospice is a visiting nurse service that focuses on care delivered at the very end of life for patients with terminal illness, with life expectancy less than 6 month. (2) Advanced care planning/counseling discussion: Patient is seen at bedside for a [id number] 20-minute advance care planning conversation. He tells me that he and his has had very direct conversations about his mortality and prognosis. They are aware his cancer is not curable. They are aware that the treatment he is getting in the form of radiation and chemotherapy are both palliative in nature and designed with the hope of slowing or the progression of his cancer. He states that he is willing to try these therapies but should he have more progression of disease, worsening symptoms, intolerance to the therapies, then he would stop everything and transition to a focus that is more about comfort. He states that he has had very direct conversations with his family including his grown adult children, his and close family members and friends. He feels that he has had his goodbyes and made peace with the things he needed to make peace with. He said that he will no longer be able to work at his job at [employer] where he has been in the [employer] division for over 10 years. He notes that should his dying time be nearing, he would prefer to be at home and with his family. We discussed the option of adding hospice to his care at that time if chemotherapy and other cancer directed therapies are no longer being pursued. He verbalized unders victorino was appreciative of this information. (3) Cancer related pain: Patient has used 8 mg of IV Dilaudid in the last 24 hours without any lasting relief. He is however starting to tolerate some p.o. and there is hope that he may be able to resume some oral medications as the weekend progresses. With that in mind and given the fact that he is scheduled to start radiation therapy on Friday, I will avoid beginning a Dilaudid PRODUCT DEVELOPMENT CHEMIST and instead increase his Dilaudid both as needed dosing and add a scheduled dose. I have added hold parameters to hold for somnolence or respiratory rate less than 14 breaths/min as well to these orders. We will begin a trial of Dilaudid 1.5 mg IV every 8 hours as a standing dose and then give him the option to use Dilaudid as needed dosing in the following dose ranges: Dilaudid 1.5 mg every 3 hours as needed for severe to very severe pain and Dilaudid 1 mg IV every 3 hours as needed for moderate pain. He verbalized understanding of this plan. He feels that he was likely need the higher dose of the Dilaudid given that the pain remains uncontrolled. Current dosing is not lasting the full 4 hours and therefore I reduce the interval to 3 hours. I have added hold parameters to hold for somnolence or respiratory rate less than 14. I have also asked the respiratory rate be documented at the time of medication administration. Patient is very opioid tolerant given his history of home oxycodone use prior to this admission and now has been tolerating IV Dilaudid without good resolution and relief of pain. He may be a candidate for celiac plexus block given the nature of his cancer related pain. I will ask for pain management consult to be done to evaluate and for this intervention. I am available to assist with this patient's ongoing severe cancer related pain management through the course the weekend by Dexter text. (4) Abdominal pain, generalized: see #3 above (5) Celiac plexus syndrome: Interventional pain management consult requested. 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 today we do not have a steady history of him tolerating p.o. and keeping things down. * I have asked for interventional pain management consult to assess patient for possible celiac plexus block. * I am available product safety professional through the weekend via Dexter text for additional severe cancer pain related needs for this patient. Please not hesitate to page me if needed. * Patient is and had very inder conversations with regards to his prognosis and overall short anticipated mortality. He is in agreement for trial of cancer directed therapies with the hope of slowing down the progression of his cancer and buying some additional time with his family. * He understands that these therapies are not curative in any manner. He states that should they begin to cause him problems, or intolerance, or his disease progresses in spite of the therapies he is on to help slow the progression, that he would transition to a comfort focused plan of care and he is in agreement at that time of enrolling in home hospice. History of Present Illness Reason for Consultation: Goals of care, cancer pain management. Attending Physician: Tyra Young MD History of Present Illness 62-year-old patient presents to the ER with complaint of persisting abdominal pain. Carries a history of recently diagnosed grade cancer with metastatic findings of the liver, diabetes, status post pacemaker. At the time of ER presentation he complained of 1 episode, isolated, hematemesis. Per admitting note: Per review of [facility] ER reports. Patient's provides copy: 09/04/2022 CT abdomen pelvis with IV contrast : "Significant interval worsening of the pancreas shins primary pancreatic malignancy along with marked worsening of hepatic metastatic disease, development of pulmonary metastatic disease, and mildly increased neoplastic retroperitoneal adenopathy. Thrombosis of the splenic vein is again present mildly increased from previously." (Copy of report from [facility] ER) 09/04/2022 copy of labs with WBC: 14.5, H/H: 13.1/38.2, PLT: 191, NA: 140, lactate: 1.4, T. bili: 1.6, AST: 56, ALT: 36, alk phos: 310, lipase: 33 He has been admitted for management of his severe cancer-related abdominal pain, splenic vein thrombosis, metastatic Pancreatic cancer. Patient is followed by medical oncology, Dr. Lubin in [facility]. He is followed for radiation oncology here [facility] with Dr. Man. He is scheduled to begin palliative radiation therapy on 09/09/2022. He is also scheduled to begin oral chemotherapy with capecitabine on 09/09/2022. His has brought the medications in with her. Patient describes his current pain is a 10 out of 10. It begins in his mid epigastric region and stretches out to the sides and down around to the flank. He also describes the pain as shooting through him straight through his back. He states the pain is severe and ongoing. We will wait for approximately 2-1/2 to 3 hours with the Dilaudid that is not lasting. At home he is using oral oxycodone without significant relief. Currently he has been ordered Dilaudid 1 mg IV every 4 hours as needed. He has used 8 mg in the last 24 hours. In addition to his very severe cancer related pain, he has also been struggling with nausea and vomiting. He states that today is the first day he has been able to take some oral food and keep it down, "so far." At home he has not been eating or drinking very much for the last 2 weeks. He has lost some weight but is unsure of the total amount. He complains of fatigue, anorexia, occasional insomnia. He denies any anxiety, fever or chills. He denies headaches, blurry vision, lightheadedness or syncope. Allergies Allergy/AdvReac Type Severity Reaction Status Date / Time No Known Drug Allergies Allergy Verified 08/27/22 13:12 Home Medications Medication Instructions Recorded Confirmed Type empagliflozin 25 mg tablet 25 mg PO DAILY 08/27/22 09/04/22 History (Jardiance) lisinopril 2.5 mg tablet 2.5 mg PO DAILY 08/27/22 09/04/22 History lorazepam 0.5 mg tablet 0.25 mg PO BID PRN Anxiety 08/27/22 09/04/22 History metformin 850 mg tablet 850 mg PO BID 08/27/22 09/04/22 History nitroglycerin 0.4 mg sublingual 0.4 mg sublingual Q5M PRN Chest 08/27/22 09/04/22 History tablet Pain ondansetron HCl 4 mg tablet 4 mg PO Q8H PRN Nausea 08/27/22 09/04/22 History oxycodone 10 mg tablet 10 mg PO Q4H PRN pain,severe 08/27/22 09/04/22 History pantoprazole 40 mg tablet,delayed 40 mg PO DAILY 08/27/22 09/04/22 History release capecitabine 500 mg tablet 1,000 mg PO BID 09/04/22 09/04/22 History apixaban 5 mg (74 tabs) tablets in 5 mg PO BID #74 ea 09/06/22 Rx a dose pack (Eliquis) Patient History Medical History (Updated 09/06/22 @ 15:57 by Radha Herron, KESHA) Abdominal pain, generalized Advanced care planning/counseling discussion Cancer related pain Celiac plexus syndrome Diabetes mellitus, type II Pacemaker Palliative care encounter Pancreatic cancer metastasis to liver Surgical History History of removal of cyst (2020) Back of neck Status post fine needle aspiration (08/14/22) Liver, Endoscopic Needle Aspiration + Celiac Plexus Neurolysis Dr. Tricia Elam at [facility] Status post rotator cuff repair Left Family History Father No problems noted. Mother Cancer patient unsure of type Sister No problems noted. Brother No problems noted. Brother No problems noted. Son No problems noted. Daughter No problems noted. Daughter No problems noted. Social History Smoking Status: Former smoker Tobacco Type: Cigarettes Age Started Using Tobacco: 15; packs per day: 1; Second Hand Exposure: Yes (parents smoked in home and ); Hx Alcohol Use: No Hx Substance Use: No Preferred Language: Vietnamese Communication Ability: Effective Visual Impairment: No Limitations Hearing Ability: Normal Magnesium Mill Operator Required: No Beliefs That Will Affect Care: None marital status: Current Living Situation: Spouse and Other Current Living Situation Comment: lives with and son current occupational status: retired current occupation: Retired [employer] How many Children do You have: 3 Feels Safe at Home: Yes caffeine: No Dental Care, Regularly: No Assistive Devices: None Review of Systems Review of Systems: All systems reviewed & are unremarkable except as noted in Subjective Physical Exam Physical Exam: Cachectic, chronically seriously ill male, lying in bed. Appears distressed. Holding onto left side of abdomen and occasionally grimacing with any movement or coughing. Bitemporal wasting is noted. PERRLA bilaterally, EOMI is intact. Pharynx is slightly dry with fair dentition. Mucosa are slightly dry, no obvious thrush noted. Neck is supple without any obvious JVD. There is no thyromegaly or stridor noted. Respiratory effort is normal at rest and there is no conversational dyspnea. Lungs are clear on this limited anterior exam although mildly diminished overall. There is no obvious wheeze or coarse rhonchi noted. Heart tones are normal S1 is 2 without any obvious murmur. Abdomen is distended, tender to touch and firm. There is tenderness that begins at the epigastric region on palpation and continues down along both sides of his abdomen around to the flanks the mid axillary line. When pressed at the epigastric region his pain will radiate into his back in a direct manner. Generalized weakness is noted. Strength is diminished. He has some muscle atrophy noted. Skin is pale. Cool to touch. Mood is subdued. He is awake alert and oriented x3. Results & Data ([facility]) Vital Signs (Past 12 Hours) Vital Signs Temp Pulse Resp BP Pulse Ox O2 Del Method 09/06/22 15:20 37.1 C 92 H 18 129/67 93 Room Air 09/06/22 11:06 37.1 C 91 H 18 111/65 93 Room Air 09/06/22 06:37 36.8 C 88 16 131/70 93 Room Air Laboratory Results Data reviewed Diagnostic Findings Data reviewed PG Care Time/CCT Total # of Minutes Spent Total Time Spent: 65 Total Time Spent with Patient: Total time spent is greater than 50% in coordination of care (as documented) at patient's floor/unit and/or counseling patient: 10 minutes was spent in chart review this complex case, which included review of outside hospital records. 15 minutes was spent in direct evaluation of patient. 20 minutes was spent in [id number] direct discussion of advance care planning and goals of care. 10 minutes was spent reviewing the plan of care and care coordination. 10 minutes was spent updating the primary team and nursing. Prolonged Care Time Prolonged Care Time: Yes Advanced Care Planning 40888 Advanced Care Planning 30 Min Coding Level of Care Code New Pt INP/OBS CONSULT LVL 5, 80 MIN Patient Type New History Comprehensive Exam Comprehensive Medical Decision Making High Complexity Diagnoses Palliative care encounter Z51.5 Advanced care planning/counseling discussion Z71.89 Cancer related pain G89.3 Abdominal pain, generalized R10.84 Celiac plexus syndrome G54.8 Carcinoma of pancreas metastatic to liver C25.9; C78.7 Splenic vein thrombosis I82.890 Additional Codes Advanced Care Planning - 10766 Advanced Care Planning 30 Min: 86142 Advanced Care Planning 30 Min ([id number]) Prolonged Care Time - Prolonged Care Time: Yes ([id number])
[2022-09-06] MEDS: HYDROmorphone INJ 1 MG/ML SYRINGE IV SCH ×2 (15:55→23:56)
[2022-09-06] MEDS: HEPARIN SODIUM/DEXTROSE 25,000 UNITS/500 ML BAG IV SCH ×2 (17:47→23:43)
[2022-09-06 20:33] LABS: Partial Thromboplastin Ratio 1.5; Partial Thromboplastin Time 42.4 Seconds (21.0-31.0)
[2022-09-06] MEDS: PANTOprazole 40 MG TAB PO SCH (21:37)
[2022-09-07] MEDS: HYDROmorphone INJ 1 MG/ML SYRINGE IV PRN ×5 (03:14→21:03)
[2022-09-07 03:28] LABS: Albumin Globulin Ratio 0.8 (0.9-2); Albumin Level 2.7 gm/dl (3.4-5.0); BUN Creatinine Ratio 17.4 (10-20); Bilirubin,Total 1.1 mg/dl (0.2-1.0); Calcium 8.2 mg/dl (8.5-10.1); Creatinine Clr Calc Pharmacy 148.3 ml/min; Est GFR (African American) 138.3 ml/min; Est GFR (Non-African American) 119.4 ml/min; Globulin 3.4 gm/dl (2.5-4.0); Potassium 3.7 mmol/L (3.5-5.1); Total Protein 6.1 gm/dl (6.0-8.3)
[2022-09-07 03:58] LABS: Partial Thromboplastin Ratio 1.6
[2022-09-07] MEDS: HEPARIN SODIUM/DEXTROSE 25,000 UNITS/500 ML BAG IV SCH ×3 (04:03→21:01)
[2022-09-07] MEDS: POT PHOSPHATE MONOBASIC W/ SOD TAB PO SCH ×4 (07:15→21:02)
[2022-09-07] MEDS: PANTOprazole 40 MG TAB PO SCH ×2 (07:15→21:02)
[2022-09-07] MEDS: GABAPENTIN 300 MG CAP PO SCH ×2 (07:15→21:01)
[2022-09-07 08:05] LABS: Partial Thromboplastin Ratio 1.7
[2022-09-07 08:11] LABS: Partial Thromboplastin Time 47.6 Seconds (21.0-31.0)
[2022-09-07] MEDS: HYDROmorphone INJ 1 MG/ML SYRINGE IV SCH ×2 (08:40→15:57)
[2022-09-07] MEDS: INSULIN ASPART PER UNIT SC SCH ×4 (08:43→21:00)
[2022-09-07 10:56] LABS: Hematocrit (blood only) 28.9 % (42.0-52.0); Hemoglobin 9.8 g/dl (14.0-18.0)
[2022-09-07 11:34] LABS: Partial Thromboplastin Ratio 1.5; Partial Thromboplastin Time 42.6 Seconds (21.0-31.0)
--- NOTE | 2022-09-07 16:06 | Hospitalist Progress Note ---
Date of Service September 07, 2022 Assessment & Plan (1) Hematemesis: (2) 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 Ongoing nausea, vomiting, decreased appetite, upper abdominal pain since 06/2022. He is being managed for the following: Hematemesis: 09/04/2022 CT abdomen pelvis with IV contrast : "Significant interval worsening of the pancreas shins primary pancreatic malignancy along with marked worsening of hepatic metastatic disease, development of pulmonary metastatic disease, and mildly increased neoplastic retroperitoneal adenopathy. Thrombosis of the splenic vein is again present mildly increased from previously." (Copy of re port from [facility] ER) 09/04/2022 copy of labs with WBC: 14.5, H/H: 13.1/38.2, PLT: 191, NA: 140, lactate: 1.4, T. bili: 1.6, AST: 56, ALT: 36, alk phos: 310, lipase: 33 At presentation in ER, vital stable. H/H 13.9/40, PLT: 212, INR: 1.2, BUN: 16, Cr: 0.5, T. bili: 2.0, AST: 50, ALT: 34, alk phos: 323 Pt w/ no further hematemesis, HnH stable around 11.0, protonix gtt to PO protonix. GI evaled, s/p EGD 09/05 w/ finding of nl esophagus, gastritis +, duodenitis +, non bleeding duodenal ulcer. Rec is bid protonix for 3 months and then daily. follow HnH every 12 hours or as needed, diet as elsie, use nausea meds prn. Abdominal pain: Splenic vein thrombosis: Pancreatic cancer: Recent diagnosis pancreatic cancer with metastasis to liver in 07/2022 Is following with oncologist, Dr. Lubin in [place]. Radiation oncology at [facility], Dr. Man Is to start receiving palliative chemotherapy and radiation on 09/09/22. Patient brought his capecitabine with him Palliative care consult, appreciate recs hep drip started 09/05, lurdes sent to pharmacy for cost eval. Cw hep for now until Hb stability ensured. c/w pain Mx. Will consult oncology and radiation on Friday for guidance w/ palliative chemo/radiation on Friday. (5) Hyponatremia: likely 2/2 poor appetite, monitor. Imrpvoing. (6) Diabetes mellitus, type II: Plan: Has not been taking medications secondary to N/V/abdominal pain, decreased oral intake Hold home oral diabetes medicine NovoLog sliding scale per protocol A1c in a.m. (7) HTN (hypertension): Plan: Not been taking BP medication secondary to poor oral intake BP stable Hold lisinopril (8) Pacemaker: Plan: Pacemaker in place DVT Prophylaxis SCDs for now DNR/DNI Follows with PCP: [facility] for routine care Dispo: pending palliative eval, will need oral anticoagulation on DC. Admission and Anticipated Discharge Date Admission Date: September 04, 2022 Subjective Patient seen and examined at bedside as a follow-up of hematemesis on the background of metastatic pancreatic cancer. Patient was lying in bed, on room air, NAD, reports no new acute event overnight, reports pain over the side of his belly/lower rib cage bearable and under control, denies any further vomiting while in the hospital, reports no nausea and goodl improvement in diet/ate whole breakfast, denies headache or dizziness, denies pain or burning while passing urine or fever. Physical Exam Physical Exam: GENERAL: Alert and oriented x3. NAD, on RA. Chronically ill/weak appearing. HEENT: No pallor, no icterus. Pupils equal, round and reactive to light. Oral mucosa moist. NECK: No JVD, no neck masses. HEART: S1 and S2 heard. Regular rate and rhythm. No murmur, no gallop. RESPIRATORY SYSTEM: Normal AP diameter. No accessory muscle use. No wheezing, no crackles. ABDOMEN: Soft, bowel sounds present, tender RUQ/Epigastric/LUQ, no distention. CENTRAL NERVOUS SYSTEM: No facial droop. Speech is clear. Obeys simple commands. Moves extremities. EXTREMITIES: No edema, no erythema seen. Results & Data Results & Data ([facility]) Vital Signs (Past 12 Hours) Vital Signs Temp Pulse Pulse Resp BP Pulse Ox O2 Del Method 09/07/22 15:53 37.4 C 91 H 17 136/69 94 Room Air 09/07/22 05:59 90 02/18/23 11:00 Room Air 09/07/22 12:00 36.9 C 92 H 18 138/71 95 Room Air 09/07/22 11:08 37.2 C 95 H 18 126/71 94 Room Air 09/07/22 07:31 36.6 C 92 H 20 125/75 95 Room Air (1) Hematemesis Nausea presence: with nausea Qualified Code(s): K92.0 - Hematemesis
[2022-09-07] MEDS ORDERED: DICLOFENAC SOD 1% GEL 100 GM TUBE EXT PRN (19:03)
[2022-09-07 21:03] LABS: Partial Thromboplastin Time 54.4 Seconds (21.0-31.0)
[2022-09-08] MEDS: HYDROmorphone INJ 1 MG/ML SYRINGE IV SCH ×4 (00:21→23:48)
[2022-09-08] MEDS: HEPARIN SODIUM/DEXTROSE 25,000 UNITS/500 ML BAG IV SCH (02:19)
[2022-09-08] MEDS: HYDROmorphone INJ 1 MG/ML SYRINGE IV PRN ×5 (02:23→20:00)
[2022-09-08 06:46] LABS: Basophils # (auto) 0.04 K/uL (0-0.2); Basophils % (auto) 0.4 %; Eosinophils # (auto) 0.04 K/uL (0-0.50); Eosinophils % (auto) 0.4 %; Hematocrit (blood only) 27.9 % (42.0-52.0); Hemoglobin 9.7 g/dl (14.0-18.0); Immature Granulocytes # (auto) 0.06 K/uL (0.01-0.20); Immature Granulocytes % (auto) 0.6 %; Lymphocytes % (auto) 7.9 %; Mean Corpuscular Hemoglobin 27.4 pg (25.0-34.0); Mean Corpuscular Hgb Conc 34.8 g/dL (32.0-36.0); Mean Corpuscular Volume 78.8 fL (80.0-100.0); Mean Platelet Volume 11.2 fL (9.4-12.4); Monocytes # (auto) 0.85 K/uL (0.11-0.59); Monocytes % (auto) 8.4 %; Neutrophils # (auto) 8.37 K/uL (1.40-6.50); Neutrophils % (auto) 82.3 %; Platelet Count 145 K/uL (130-400); RDW Coefficient of Variation 13.4 % (11.5-14.5); RDW Standard Deviation 38.3 fL (36.4-46.3); Red Blood Count 3.54 M/uL (4.70-6.10); White Blood Count 10.16 K/ul (4.8-10.8)
[2022-09-08 06:58] LABS: BUN Creatinine Ratio 23.7 (10-20); Calcium 8.2 mg/dl (8.5-10.1); Creatinine Clr Calc Pharmacy 179.6 ml/min; Est GFR (African American) 149.6 ml/min; Est GFR (Non-African American) 129.1 ml/min; Magnesium 1.9 mg/dl (1.7-2.4); Phosphorus 2.6 mg/dl (2.5-4.9); Potassium 3.5 mmol/L (3.5-5.1)
[2022-09-08 07:35] LABS: Partial Thromboplastin Ratio 1.8
[2022-09-08 07:38] LABS: Partial Thromboplastin Time 49.7 Seconds (21.0-31.0)
[2022-09-08] MEDS: GABAPENTIN 300 MG CAP PO SCH ×2 (08:16→20:00)
[2022-09-08] MEDS: PANTOprazole 40 MG TAB PO SCH ×2 (08:16→20:00)
[2022-09-08] MEDS: INSULIN ASPART PER UNIT SC SCH ×4 (09:18→20:27)
[2022-09-08 16:04] LABS: Hematocrit (blood only) 28.1 % (42.0-52.0); Hemoglobin 9.7 g/dl (14.0-18.0)
--- NOTE | 2022-09-08 16:21 | Hospitalist Progress Note ---
Date of Service September 08, 2022 Assessment & Plan (1) Hematemesis: (2) 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 Ongoing nausea, vomiting, decreased appetite, upper abdominal pain since 06/2022. He is being managed for the following: Hematemesis: 09/04/2022 CT abdomen pelvis with IV contrast : "Significant interval worsening of the pancreas shins primary pancreatic malignancy along with marked worsening of hepatic metastatic disease, development of pulmonary metastatic disease, and mildly increased neoplastic retroperitoneal adenopathy. Thrombosis of the splenic vein is again present mildly increased from previously." (Copy of re port from [facility] ER) 09/04/2022 copy of labs with WBC: 14.5, H/H: 13.1/38.2, PLT: 191, NA: 140, lactate: 1.4, T. bili: 1.6, AST: 56, ALT: 36, alk phos: 310, lipase: 33 At presentation in ER, vital stable. H/H 13.9/40, PLT: 212, INR: 1.2, BUN: 16, Cr: 0.5, T. bili: 2.0, AST: 50, ALT: 34, alk phos: 323 Pt w/ no further hematemesis, HnH stable around 9.5, c/w PO protonix. GI evaled, s/p EGD 09/05 w/ finding of nl esophagus, gastritis +, duodenitis +, non bleeding duodenal ulcer. Rec is bid protonix for 3 months and then daily. follow HnH every 12 hours or as needed, diet as elsie, use nausea meds prn. Abdominal pain: Splenic vein thrombosis: Pancreatic cancer: Recent diagnosis pancreatic cancer with metastasis to liver in 07/2022 Is following with oncologist, Dr. Lubin in [place]. Radiation oncology at [facility], Dr. Man Is to start receiving palliative chemotherapy and radiation on 09/09/22. Patient brought his capecitabine with him Palliative care consult, appreciate recs hep drip started 09/05, -- blackish BM daily leading upto 09/08, will hold hep drip. Eliquis costs him $50.55 a month. c/w pain Mx. Will consult oncology and radiation for guidance w/ palliative chemo/radiation on Friday. (5) Hyponatremia: likely 2/2 poor appetite, monitor. Improving. (6) Diabetes mellitus, type II: Plan: Has not been taking medications secondary to N/V/abdominal pain, decreased oral intake Hold home oral diabetes medicine NovoLog sliding scale per protocol A1c in a.m. (7) HTN (hypertension): Plan: Not been taking BP medication secondary to poor oral intake BP stable Hold lisinopril (8) Pacemaker: Plan: Pacemaker in place DVT Prophylaxis SCDs for now DNR/DNI Follows with PCP: [facility] for routine care Dispo: For Palliative Rx on Friday, ongoing Pall eval. Admission and Anticipated Discharge Date Admission Date: September 04, 2022 Subjective Patient seen and examined at bedside as a follow-up of hematemesis on the background of metastatic pancreatic cancer. Patient was lying in bed, on room air, NAD, reports no new acute event overnight, reports pain over the side of his belly/lower rib cage bearable and about the same w/ pain meds, denies any further vomiting while in the hospital, reports no nausea and ongoing improvement in diet, has daily blackish bowel movement, will hold heparin drip today. denies headache or dizziness, denies pain or burning while passing urine or fever. Physical Exam Physical Exam: GENERAL: Alert and oriented x3. NAD, on RA. Chronically ill/weak appearing. HEENT: No pallor, no icterus. Pupils equal, round and reactive to light. Oral mucosa moist. NECK: No JVD, no neck masses. HEART: S1 and S2 heard. Regular rate and rhythm. No murmur, no gallop. RESPIRATORY SYSTEM: Normal AP diameter. No accessory muscle use. No wheezing, no crackles. ABDOMEN: Soft, bowel sounds present, tender RUQ/Epigastric/LUQ, no distention. CENTRAL NERVOUS SYSTEM: No facial droop. Speech is clear. Obeys simple commands. Moves extremities. EXTREMITIES: No edema, no erythema seen. Results & Data Results & Data ([facility]) Vital Signs (Past 12 Hours) Vital Signs Temp Pulse Pulse Resp BP Pulse Ox O2 Del Method 09/08/22 16:10 36.9 C 91 H 18 133/76 93 Room Air 09/08/22 15:39 94 H 09/08/22 09:00 Room Air 09/08/22 11:10 37.1 C 91 H 17 121/68 94 Room Air 09/08/22 07:30 90 09/08/22 06:39 37.2 C 79 18 116/64 96 Room Air (1) Hematemesis Nausea presence: with nausea Qualified Code(s): K92.0 - Hematemesis
--- NOTE | 2022-09-08 18:50 | Consultation ---
Date of Consultation September 08, 2022 Assessment & Plan (1) Hematemesis: Hematemesis was apparently self-limited, endoscopic evaluation did not reveal acute bleeding though certainly both the diffuse gastritis and the focal duodenal ulcer may have been a bleeding source. He is on twice daily PPI, will need to watch very closely for additional bleeding especially in the context of possible anticoagulation for splenic vein thrombosissee separate discussion. Current notes suggest some ongoing melena which may last for several days until he clears the original hemorrhage. 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 Trying Unfortunately cannot offer curative therapy in this context. National Comprehensive Cancer Network (NCCN) guidelines would suggest that chemoradiation may play a role more specifically with locally advanced rather than in clearly metastatic disease. Initiation of capecitabine in conjunction with radiation could exacerbate nausea/vomiting symptomatology, exacerbate thrombocytopenia that could further contribute to additional episodes of hematemesis, and produce other toxicities such as significant hand-foot syndrome. In the setting of clearly more widely metastatic disease, NCCN suggests radiation is a more purely palliative intervention as an alternative to combination chemotherapy which is the primary recommendation for better performance status patients. Description does suggest that his performance status is less optimal and thus radiation alone may be a reasonable palliative intervention to consider. I would suggest that radiation started initially without chemotherapy if the patient is well enough to travel to the radiation oncology department for its start. As his situation stabilizes, I would defer to his primary oncologist Dr. Mynor Lubin to discuss the pros and cons of the subsequent resumption of the originally planned chemoradiation protocol. Ultimate decision making for the aggression of his overall treatment approach will need to take into account the need to preserve short-term quality of life and his desire to be able to spend some quality time with his family and what is unfortunately likely to be a short duration survival. (3) Cancer related pain: Palliative care is working with the patient to optimize pain management, please see their discussion (4) Anemia: Anemia almost certainly represents consequences of the blood loss associated with his hematemesis. I have arranged for nutritional studies to be obtained wi th morning blood work to guide us in possible iron and/or other nutritional replacement as needed to optimize his hemoglobin/hematocrit which in turn will contribute to his overall sense of wellbeing. (5) Splenic vein thrombosis: While certainly there would be some consideration for anticoagulation in the absence of any concern over bleeding issues, the latter may be more the higher priority acute issue. Currently, heparin drip is listed as being on hold. If patient remains without signs of further active GI bleeding, might consider cautious reinitiation of anticoagulation initially at lower dose (half of the usual recommended doses without the use of a bolus) as a "stress test" for relapsing bleeding with the potential to progress towards full dose if/as he sh ows ongoing stability. Plan 1. Immediate stabilization with regards to pain, nausea/vomiting and GI hemorrhage as per the hospitalist, gastroenterology, and palliative care teams 2. If he is well enough to begin radiation, we will start with that as stand- alone therapy without the start of capecitabine for reasons as detailed above. If he remains quite stable he could review with his usual oncologist whether later addition of capecitabine is still a consideration 3. Anemia work-up will proceed with nutritional assessment and based on that w ould consider appropriate nutritional supplementation 4. Anticoagulation would be a consideration with respect to the splenic vein thrombosis but did start should be delayed until there is reasonable confidence that the GI hemorrhage has been controlled. At that point would start with half dose treatment for a period of 24 to 48 hours to ensure no relapse of clinical bleeding prior to cautiously resuming full dose. History of Present Illness Reason for Consultation: Recently diagnosed pancreatic adenocarcinoma admitted with hematemesis and poorly controlled pain and nausea/vomiting. Scheduled for start of chemoradiation on 09/09/2022, asked for perspective for medical oncology Attending Physician: Tyra Young MD History of Present Illness Please note that this is a consultation constructed purely from review of the electronic database. I am working remotely and unable to speak directly with the patient or examine him. I reviewed outpatient radiation oncology notes and the current admission records which seem to be an accurate source of relevant information but I am completely reliant on that for my conclusions and perspectives. If there are urgent concerns regarding the need for more direct [id number] review, you should consider transferring the patient to another institution. I will follow up. With the patient in a [id number] meeting on Friday09/10/2022 when I return to the office to augment my assessment and recommendations. Patient is a 62-year-old who was diagnosed earlier this year with pancreatic adenocarcinoma. He apparently presented with abdominal pain and imaging that showed a pancreatic mass associated with liver, lung, and widespread [place]andria involvement of both the thorax and abdomen. PET scan results are incorporated into the database below. Per outpatient radiation oncology notes, needle aspiration of one of the liver lesions was consistent with pancreatic adenocarcinoma and staging was listed as T3/4 N1M1 / IV disease. He has been followed by Dr. Mynor Lubin and oncology from [facility], and with Dr. Neri Man here in radiation oncology. Patient has completed simulation and is scheduled to start radiation on 09/09/2022. He was acutely transferred from [facility] emergency department for hematemesis and admitted here 09/04/2022. 09/05/2022 upper endoscopic study shows diffuse inflammation of the stomach, nonbleeding duodenal ulcer, and duodenitis. Patient has been started on PPI as Protonix 40 mg twice daily. Per notes from the admitting physician, CT scan done at [facility] prior to transfer did show further increase in size of the pancreatic and liver metastases as well as a splenic vein thrombosis. Patient was at least briefly started on heparin for the splenic vein thrombosis but in the context of hematemesis, current data may suggest that the heparin is on hold. Palliative care team did see the patient on 09/06/2022 and has fundamentally worked with him to determine that while he would like to consider treatment options, it is very important him to be able to be home in the end stages of his life. Note that the current database indicates that he is DNR/DNI as per previous discussions. Allergies Allergy/AdvReac Type Severity Reaction Status Date / Time No Known Drug Allergies Allergy Verified 08/27/22 13:12 Home Medications Medication Instructions Recorded Confirmed Type empagliflozin 25 mg tablet 25 mg PO DAILY 08/27/22 09/04/22 History (Jardiance) lisinopril 2.5 mg tablet 2.5 mg PO DAILY 08/27/22 09/04/22 History lorazepam 0.5 mg tablet 0.25 mg PO BID PRN Anxiety 08/27/22 09/04/22 History metformin 850 mg tablet 850 mg PO BID 08/27/22 09/04/22 History nitroglycerin 0.4 mg sublingual 0.4 mg sublingual Q5M PRN Chest 08/27/22 09/04/22 History tablet Pain ondansetron HCl 4 mg tablet 4 mg PO Q8H PRN Nausea 08/27/22 09/04/22 History oxycodone 10 mg tablet 10 mg PO Q4H PRN pain,severe 08/27/22 09/04/22 History pantoprazole 40 mg tablet,delayed 40 mg PO DAILY 08/27/22 09/04/22 History release capecitabine 500 mg tablet 1,000 mg PO BID 09/04/22 09/04/22 History apixaban 5 mg (74 tabs) tablets in 5 mg PO BID #74 ea 09/06/22 Rx a dose pack (Eliquis) Patient History Medical History (Updated 09/08/22 @ 19:20 by Conrado Holder MD) Abdominal pain, generalized Advanced care planning/counseling discussion Cancer related pain Celiac plexus syndrome Diabetes mellitus, type II Pacemaker Palliative care encounter Pancreatic cancer metastasis to liver Surgical History History of removal of cyst (2020) Back of neck Status post fine needle aspiration (08/14/22) Liver, Endoscopic Needle Aspiration + Celiac Plexus Neurolysis Dr. Tricia Elam at [facility] Status post rotator cuff repair Left Family History Father No problems noted. Mother Cancer patient unsure of type Sister No problems noted. Brother No problems noted. Brother No problems noted. Son No problems noted. Daughter No problems noted. Daughter No problems noted. 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 In reviewing the listed examination from today by the hospitalist team, there are apparently no focal changes on lung exam and cardiac exam was unremarkable. Abdomen is listed as soft with bowel sounds present and some tenderness in the diffuse upper abdomen though without distention. Description of "chronically ill/weak appearing" patient suggest that his performance status is no better than 2 and possibly 3. No mention is made of acute jaundice Results & Data ([facility]) Vital Signs (Past 12 Hours) Vital Signs Temp Pulse Pulse Resp BP Pulse Ox O2 Del Method 09/08/22 16:10 36.9 C 91 H 18 133/76 93 Room Air 09/08/22 15:39 94 H 09/08/22 09:00 Room Air 09/08/22 11:10 37.1 C 91 H 17 121/68 94 Room Air 09/08/22 07:30 90 Laboratory Results Laboratory Results - last 24 hr 09/07/22 09/07/22 09/08/22 19:58 20:13 06:21 WBC 10.16 RBC 3.54 L Hgb 9.7 L Hct 27.9 L MCV 78.8 L MCH 27.4 MCHC 34.8 RDW Std Deviation 38.3 RDW Coeff of Cabrera 13.4 Plt Count 145 MPV 11.2 Immature Gran % (Auto) 0.6 Neut % (Auto) 82.3 Lymph % (Auto) 7.9 Kern % (Auto) 8.4 Eos % (Auto) 0.4 Baso % (Auto) 0.4 Neut # (Auto) 8.37 H Lymph # (Auto) 0.80 L Kern # (Auto) 0.85 H Eos # (Auto) 0.04 Baso # (Auto) 0.04 Immature Gran # (Auto) 0.06 APTT 54.4 H* PTT Ratio 2.0 Sodium Potassium Chloride Carbon Dioxide Anion Gap BUN Creatinine Est Cr Clr Drug Dosing Est GFR ( Amer) Est GFR (Non-Af Amer) BUN/Creatinine Ratio Glucose POC Glucose 166 H Calcium Phosphorus Magnesium 09/08/22 09/08/22 09/08/22 06:21 06:21 07:28 WBC RBC Hgb Hct MCV MCH MCHC RDW Std Deviation RDW Coeff of Cabrera Plt Count MPV Immature Gran % (Auto) Neut % (Auto) Lymph % (Auto) Kern % (Auto) Eos % (Auto) Baso % (Auto) Neut # (Auto) Lymph # (Auto) Kern # (Auto) Eos # (Auto) Baso # (Auto) Immature Gran # (Auto) APTT 49.7 H* PTT Ratio 1.8 Sodium 129 L Potassium 3.5 Chloride 95 L Carbon Dioxide 34 H Anion Gap 0 L BUN 9 Creatinine 0.38 L Est Cr Clr Drug Dosing 179.6 Est GFR ( Amer) 149.6 Est GFR (Non-Af Amer) 129.1 BUN/Creatinine Ratio 23.7 H Glucose 170 H POC Glucose 157 H Calcium 8.2 L Phosphorus 2.6 Magnesium 1.9 09/08/22 09/08/22 09/08/22 11:19 15:37 17:08 WBC RBC Hgb 9.7 L Hct 28.1 L MCV MCH MCHC RDW Std Deviation RDW Coeff of Cabrera Plt Count MPV Immature Gran % (Auto) Neut % (Auto) Lymph % (Auto) Kern % (Auto) Eos % (Auto) Baso % (Auto) Neut # (Auto) Lymph # (Auto) Kern # (Auto) Eos # (Auto) Baso # (Auto) Immature Gran # (Auto) APTT PTT Ratio Sodium Potassium Chloride Carbon Dioxide Anion Gap BUN Creatinine Est Cr Clr Drug Dosing Est GFR ( Amer) Est GFR (Non-Af Amer) BUN/Creatinine Ratio Glucose POC Glucose 182 H 186 H Calcium Phosphorus Magnesium Diagnostic Findings 08/22/2022 PET scan HEAD AND NECK: There are 2 adjacent upper left cervical lymph nodes demonstrating mild FDG uptake with an SUV max of 2.0. He lymph nodes measure approximately 8 x 5 mm and are best seen on images 74 and 78. No enlarged cervical lymph nodes identified. CHEST: There is 9 mm retromanubrial soft tissue nodule/lymph node demonstrating mild FDG uptake with an SUV max of 1.9. There is an 8 mm right internal mammary lymph node demonstrating mild FDG uptake with an SUV max of 1.8. There is a 1.5 cm retrosternal lymph node on image 165 demonstrating mild FDG uptake with an SUV max of 2.2. There is also mild FDG uptake associated with the mildly enlarged right anterior diaphragmatic lymph node on image 178 which measures 1.1 cm. There is a 7 mm left upper lobe nodule on image 127 which demonstrates mild FDG uptake with an SUV max of 2.8. This could represent a bronchial lymph node or a pulmonary nodule. All of the FDG avid foci are highly suspicious for metastatic disease. There is a punctate calcified granuloma within the left upper lobe. Mild emphysema is noted. There is left-sided pacemaker. Calcified mediastinal lymph nodes are present. There is a 15 x 8 mm right paravertebral nodule at the T11 level on image 181. No associated FDG uptake. Therefore, this is unlikely to represent metastatic disease. ABDOMEN/PELVIS: There are 2 hypodense lesions within the liver best seen on images 180 and 182 with the largest measuring 2.5 cm. These demonstrate moderate peripheral FDG uptake with an SUV max of 4.3. Therefore, these are consistent with necrotic metastatic foci. There is a 4 cm necrotic pancreatic tail mass with peripheral FDG uptake demonstrating an SUV max of 5.2 consistent with the patient's known history of a pancreatic malignancy. There are multiple enlarged peripancreatic lymph nodes also demonstrating moderate FDG uptake with an SUV max of 5.0 consistent with metastatic disease. There is irregular soft tissue nodule in the left lower quadrant on image 259 measuring 12 mm demonstrating moderate FDG uptake with an SUV max of 4.4. This likely represents a metastatic focus and is concerning for early peritoneal spread of tumor. Trace ascites. Left-sided nephrolithiasis. MUSCULOSKELETAL/LOWER EXTREMITIES: There is no FDG-avid or destructive bone lesion. IMPRESSION: 1. A 4 cm FDG avid necrotic pancreatic tail mass consistent the patient's known history of a pancreatic malignancy. 2. Multifocal areas of FDG avid metastatic disease seen within the chest, abdomen, and pelvis as described above. 3. There are 2 adjacent left upper cervical lymph nodes which demonstrate mild FDG uptake. These are indeterminate but could represent early metastatic disease. These bear watching on future examinations. Chest X-Ray 09/04/22 17:19 XR chest 1V portable CLINICAL HISTORY: Hematemesis TECHNIQUE: Single frontal radiograph of the chest was obtained. Comparison: Comparison is made to PET/CT to 09/09/2022 FINDINGS: Dual lead pacemaker is seen. The cardiomediastinal silhouette is normal. The lungs are clear. No evidence of pleural effusion or pneumothorax. IMPRESSION: No acute chest disease. ACT 112: Negative or not required by law. Electronically signed by: Dain White M.D. 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
[2022-09-09] MEDS: HYDROmorphone INJ 1 MG/ML SYRINGE IV PRN ×6 (03:39→20:35)
[2022-09-09 07:18] LABS: Hematocrit (blood only) 28.7 % (42.0-52.0); Hemoglobin 9.8 g/dl (14.0-18.0); Mean Corpuscular Hemoglobin 27.4 pg (25.0-34.0); Mean Corpuscular Hgb Conc 34.1 g/dL (32.0-36.0); Mean Corpuscular Volume 80.2 fL (80.0-100.0); Mean Platelet Volume 11.5 fL (9.4-12.4); Platelet Count 142 K/uL (130-400); RDW Coefficient of Variation 13.7 % (11.5-14.5); RDW Standard Deviation 39.8 fL (36.4-46.3); Red Blood Count 3.58 M/uL (4.70-6.10); Reticulocyte % 1.6 % (0.5-2.0); Reticulocytes # 0.06 10^6/uL (0.02-0.10); White Blood Count 9.74 K/ul (4.8-10.8)
[2022-09-09 07:25] LABS: BUN Creatinine Ratio 29.3 (10-20); Calcium 8.3 mg/dl (8.5-10.1); Creatinine Clr Calc Pharmacy 166.4 ml/min; Est GFR (Non-African American) 125.1 ml/min; Phosphorus 2.2 mg/dl (2.5-4.9)
[2022-09-09 07:35] LABS: Partial Thromboplastin Ratio 1.1
[2022-09-09 07:45] LABS: Ferritin 694.4 ng/ml (8-388)
[2022-09-09] MEDS: GABAPENTIN 300 MG CAP PO SCH ×2 (08:05→20:41)
[2022-09-09] MEDS: PANTOprazole 40 MG TAB PO SCH ×2 (08:05→20:42)
[2022-09-09] MEDS: INSULIN ASPART PER UNIT SC SCH ×4 (08:08→20:49)
[2022-09-09] MEDS: HYDROmorphone INJ 1 MG/ML SYRINGE IV SCH ×2 (08:20→15:36)
--- NOTE | 2022-09-09 08:29 | Radiation OncologyConsultation ---
Date of Consultation September 09, 2022 Assessment & Plan (1) Pancreatic cancer: Mr. Lagunas is a 62-year-old gentleman with known metastatic adenocarcinoma of the pancreas. Diagnosed on 08/14/2022 by EUS FNA of the liver. Stage is T3-4 N1M1. Stage IV. He has been followed by Dr. Lubin in medical oncology who has recommended palliative chemotherapy with radiation therapy. He has been seen in our office for consultation 08/27/2022. He completed his CT simulation 08/28/2022. He unfortunately was admitted on 09/04/2022 with hematemesis. He underwent upper GI endoscopy. He has not had any further bleeding since admission. He does continue to have significant pain. Our office was consulted to discuss pall iative radiation therapy. Palliative care is working with him in regards to pain. He has been seen by Dr. Holder who is recommending radiation alone for palliation at this time. We will go forward with radiation. He is scheduled for his BVS and first treatment today at 1:05. Plan ATTENDING ADDENDUM: Assessment: Mr. Lagunas is a 62-year-old gentleman who presents with metastatic pancreatic cancer to the liver. The patient was seen in the outpatient setting and the plan was to proceed with palliative chemotherapy and radiation therapy. However the patient has now been admitted to the hospital due to splenic vein thrombosis. The patient was seen in the inpatient setting by Dr. Holder from medical oncology who advised against chemotherapy in the inpatient setting. We have been asked to evaluate the patient regarding initiating palliative radiation therapy while he is admitted to the hospital. Plan: 1. Patient will be brought down today for initiation of palliative radiation therapy. 2. Continue pain management as per primary medical team. 3. Patient and family encouraged to call us with any further questions or concerns. History of Present Illness Reason for Consultation: Palliative radiation therapy Requesting Physician: Tyra Young MD Attending Physician: Tyra Young MD History of Present Illness Development of decreased appetite and weight loss. Approximately 30 pounds. Increasing back and abdominal pain. 07/31/2022. Evaluation emergency room at [facility]. 07/31/2022. Cyst in tail of the pancreas. Abnormal lymph nodes in the epigastric region. Hypodensities in the liver. 08/14/2022. EUS-FNA biopsy of the liver revealed adenocarcinoma. Stage T3-T4 N1M1. 08/19/2022. Follow-up with medical oncology. Recommendation for palliative radiation therapy. Patient will also be receiving Xeloda Friday through Friday the days of radiation. 08/22/2022. PET/CT. 4 cm FDG avid necrotic pancreatic tail mass consistent with the patient's known history of pancreatic malignancy. Multiple areas of FDG avid metastatic disease seen within the chest, abdomen and pelvis. There are 2 adjacent left upper cervical lymph nodes which demonstrate mild FDG uptake. These are intermediate but could represent early metastatic disease. 09/04/2022. Admission for hematemesis. Patient stated that he had emesis of approximately 2 to 3 tablespoons of blood. He continues to have pain in the epigastric upper abdominal area. He presented to the emergency room and was admitted. Hemoglobin was 13.1. 09/05/2022. Upper GI endoscopy (Dr. Rushing). Normal esophagus. Gastritis. Nonbleeding duodenal ulcer with no stigmata of bleeding. Duodenitis. Patient was continued on Protonix 40 mg twice daily. 09/08/2022. Medical oncology consultation (Dr. Holder). Recommendation for radiation alone for palliation of pain. 09/09/2022. Patient continues to have abdominal pain. He rates this at a level 3-4. He had pain medication at 6:00 this morning. His appetite is fair. He denies any radiation of the pain to his back. Previously underwent CT simulation. Lines for treatment are complete and regular. It had been planned that he would start treatment today. He is in agreement to begin treatment today. Allergies Allergy/AdvReac Type Severity Reaction Status Date / Time No Known Drug Allergies Allergy Verified 08/27/22 13:12 Home Medications Medication Instructions Recorded Confirmed Type empagliflozin 25 mg tablet 25 mg PO DAILY 08/27/22 09/04/22 History (Jardiance) lisinopril 2.5 mg tablet 2.5 mg PO DAILY 08/27/22 09/04/22 History lorazepam 0.5 mg tablet 0.25 mg PO BID PRN Anxiety 08/27/22 09/04/22 History metformin 850 mg tablet 850 mg PO BID 08/27/22 09/04/22 History nitroglycerin 0.4 mg sublingual 0.4 mg sublingual Q5M PRN Chest 08/27/22 09/04/22 History tablet Pain ondansetron HCl 4 mg tablet 4 mg PO Q8H PRN Nausea 08/27/22 09/04/22 History oxycodone 10 mg tablet 10 mg PO Q4H PRN pain,severe 08/27/22 09/04/22 History pantoprazole 40 mg tablet,delayed 40 mg PO DAILY 08/27/22 09/04/22 History release capecitabine 500 mg tablet 1,000 mg PO BID 09/04/22 09/04/22 History apixaban 5 mg (74 tabs) tablets in 5 mg PO BID #74 ea 09/06/22 Rx a dose pack (Eliquis) Patient History Medical History (Updated 09/09/22 @ 08:19 by Sunitha Peres PA-C) Abdominal pain, generalized Advanced care planning/counseling discussion Cancer related pain Celiac plexus syndrome Diabetes mellitus, type II Pacemaker Palliative care encounter Pancreatic cancer metastasis to liver Surgical History History of removal of cyst (2020) Back of neck Status post fine needle aspiration (08/14/22) Liver, Endoscopic Needle Aspiration + Celiac Plexus Neurolysis Dr. Tricia Elam at [facility] Status post rotator cuff repair Left Family History Father No problems noted. Mother Cancer patient unsure of type Sister No problems noted. Brother No problems noted. Brother No problems noted. Son No problems noted. Daughter No problems noted. Daughter No problems noted. Social History Smoking Status: Former smoker Tobacco Type: Cigarettes Age Started Using Tobacco: 15; packs per day: 1; Second Hand Exposure: Yes (parents smoked in home and ); Hx Alcohol Use: No Hx Substance Use: No Preferred Language: Cuban Communication Ability: Effective Visual Impairment: No Limitations Hearing Ability: Normal Fingernail Former Required: No Beliefs That Will Affect Care: None marital status: Current Living Situation: Spouse and Other Current Living Situation Comment: lives with and son current occupational status: retired current occupation: Retired [employer] How many Children do You have: 3 Feels Safe at Home: Yes caffeine: No Dental Care, Regularly: No Assistive Devices: None Radiation History Development of decreased appetite and weight loss. Approximately 30 pounds. Increasing back and abdominal pain. 07/31/2022. Evaluation emergency room at [facility]. 07/31/2022. Cyst in tail of the pancreas. Abnormal lymph nodes in the epigastric region. Hypodensities in the liver. 08/14/2022. EUS-FNA biopsy of the liver revealed adenocarcinoma. Stage T3-T4 N1M1. 08/19/2022. Follow-up with medical oncology. Recommendation for palliative radiation therapy. Patient will also be receiving Xeloda Friday through Friday the days of radiation. 08/22/2022. PET/CT. 4 cm FDG avid necrotic pancreatic tail mass consistent with the patient's known history of pancreatic malignancy. Multiple areas of FDG avid metastatic disease seen within the chest, abdomen and pelvis. There are 2 adjacent left upper cervical lymph nodes which demonstrate mild FDG uptake. These are intermediate but could represent early metastatic disease. Review of Systems Review of Systems: 13 point review of system completed. Negative other than what is mentioned in the history of present illness. Physical Exam Constitutional: WD/WN, vitals as above Eyes: EOM intact bilaterally ENMT: Ears: no hearing impairment Neck: trachea midline, no thyromegaly Respiratory: normal respiratory effort, lungs clear to auscultation Cardiovascular: RRR, no murmur, no edema Gastrointestinal (Abdomen): Inspection/Auscultation: abdomen normal to inspection (Radiation markers in place.) There is tenderness to palpation in the upper quadrants and epigastric area. Skin: no rashes, warm and dry Neurologic: Normal strength and coordination. Psychiatric: A+Ox3, euthymic affect Lymphatic: no inguinal lymphadenopathy Results (Rad Onc) 09/08/2022. Hemoglobin at 9.7. 09/09/2022. Hemoglobin at 9.8. Pathology Results: were reviewed and pertinent findings noted in HPI Imaging Studies: were reviewed and pertinent findings noted in HPI Time Spent Midlevel I spent [15] minutes in preparation for this follow up evaluation including reviewing all the clinical records, reviewing laboratory studies, pathology reports and imaging results. I spent [20] minutes with direct face to face interaction with the patient and/or family including performing a physical exam and answering all questions. I spent [10] minutes documenting this patient's visit. PG Care Time/CCT Total # of Minutes Spent Total Time Spent with Patient: Total time spent is greater than 50% in coordination of care (as documented) at patient's floor/unit and/or counseling patient: Coding Level of Care Code INP/OBS CONSULT LVL 3, 45 MIN Diagnoses Pancreatic cancer C25.9
[2022-09-09] MEDS: FOLIC ACID 1 MG TAB PO SCH (10:18)
[2022-09-09] MEDS: POT PHOSPHATE MONOBASIC W/ SOD TAB PO SCH ×3 (12:27→20:46)
--- NOTE | 2022-09-09 14:41 | Communication Note ---
Date of Service: September 09, 2022 Palliative Med Brief Note Full note to follow I met with pt, and son [id number]. Pt has decided he will do whatever RT he can have done while in hospital but he will not tolerate the drive to and from for OP RT and so he wants to go home with hospice at discharge. would like possible Dilaudid [facility] [employer]. They have enacted a safety plan at home and removed all firearms and weapons from the premise, as pt notes he does not want to even be tempted by the thought of hurting himself if pain becomes unbearable. and son in agreement and both affirm there are no weapons in the home or on their property. He has RT session 1 at 1pm today and is awaiting anesthesia eval for poss plexus block. I have notified primary team and CM. My full note will follow later today. Radha Herron DNP Clinical Director, Palliative Medicine
--- NOTE | 2022-09-09 15:28 | Hospitalist Progress Note ---
Date of Service September 09, 2022 Assessment & Plan (1) Hematemesis: (2) 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 Ongoing nausea, vomiting, decreased appetite, upper abdominal pain since 06/2022. He is being managed for the following: Hematemesis: 09/04/2022 CT abdomen pelvis with IV contrast : "Significant interval worsening of the pancreas shins primary pancreatic malignancy along with marked worsening of hepatic metastatic disease, development of pulmonary metastatic disease, and mildly increased neoplastic retroperitoneal adenopathy. Thrombosis of the splenic vein is again present mildly increased from previously." (Copy of re port from [facility] ER) 09/04/2022 copy of labs with WBC: 14.5, H/H: 13.1/38.2, PLT: 191, NA: 140, lactate: 1.4, T. bili: 1.6, AST: 56, ALT: 36, alk phos: 310, lipase: 33 At presentation in ER, vital stable. H/H 13.9/40, PLT: 212, INR: 1.2, BUN: 16, Cr: 0.5, T. bili: 2.0, AST: 50, ALT: 34, alk phos: 323 Pt w/ no further hematemesis, HnH stable around 9.5, c/w PO protonix. GI evaled, s/p EGD 09/05 w/ finding of nl esophagus, gastritis +, duodenitis +, non bleeding duodenal ulcer. Rec is bid protonix for 3 months and then daily. follow HnH every 12 hours or as needed, diet as elsie, use nausea meds prn. Abdominal pain: Splenic vein thrombosis: Pancreatic cancer: Recent diagnosis pancreatic cancer with metastasis to liver in 07/2022 Is following with oncologist, Dr. Lubin in [place]. Radiation oncology at [facility], Dr. Man Is to start receiving palliative chemotherapy and radiation on 09/09/22. Patient brought his capecitabine with him Palliative care consult, appreciate recs hep drip started 09/05, -- blackish BM daily leading upto 09/08, will hold hep drip. Eliquis costs him $50.55 a month. c/w pain Mx. Will consult oncology and radiation for guidance w/ palliative chemo/radiation on Friday. -- recs is for palliative radiation this time; appreciate recs from [facility]. (5) Hyponatremia: likely 2/2 poor appetite, monitor. Improving. (6) Diabetes mellitus, type II: Plan: Has not been taking medications secondary to N/V/abdominal pain, decreased oral intake Hold home oral diabetes medicine NovoLog sliding scale per protocol A1c in a.m. (7) HTN (hypertension): Plan: Not been taking BP medication secondary to poor oral intake BP stable Hold lisinopril (8) Pacemaker: Plan: Pacemaker in place DVT Prophylaxis SCDs for now DNR/DNI Follows with PCP: [facility] for routine care Dispo: Palliative and Pain Mx eval ongoing, ideally will use hep drip low dose w/o bolus when bowel color clears and then possibly transition to eliquis if no further black stool on hep drip; then possible DC; but will continue to d/w family until their home arrangement is being done for hospice care. As of now, Lizbeth wants to take him home either Friday or w/ hospice care and would like as much of radiation as possible until then, it has been communicated to radiation team. Admission and Anticipated Discharge Date Admission Date: September 04, 2022 Subjective Patient seen and examined at bedside as a follow-up of hematemesis on the background of metastatic pancreatic cancer. Patient was lying in bed, on room air, NAD, reports no new acute event overnight, reports pain over the side of his belly/lower rib cage bearable and about the same w/ pain meds, denies any further vomiting while in the hospital, reports no nausea and ongoing improvement in diet, has daily blackish bowel movement, heparin drip has been held, denies headache or dizziness, denies pain or burning while passing urine or fever. Pt's and son at bedside, updated on pt's current status. Updated need for blood thinner/anticoagulation and complexity of its use due to recent hematemesis/and ongoing black stool. If his Hb stablizes and stool color clears up, then we can start blood thinner at half the dose required and see uptitrate from there. They voiced understanding and are agreeable to plan of care. Physical Exam Physical Exam: GENERAL: Alert and oriented x3. NAD, on RA. Chronically ill/weak appearing. HEENT: No pallor, no icterus. Pupils equal, round and reactive to light. Oral mucosa moist. NECK: No JVD, no neck masses. HEART: S1 and S2 heard. Regular rate and rhythm. No murmur, no gallop. RESPIRATORY SYSTEM: Normal AP diameter. No accessory muscle use. No wheezing, no crackles. ABDOMEN: Soft, bowel sounds present, tender RUQ/Epigastric/LUQ, no distention. CENTRAL NERVOUS SYSTEM: No facial droop. Speech is clear. Obeys simple commands. Moves extremities. EXTREMITIES: No edema, no erythema seen. Results & Data Results & Data ([facility]) Vital Signs (Past 12 Hours) Vital Signs Temp Pulse Pulse Resp BP BP Pulse Ox 09/09/22 11:46 36.9 C 81 18 120/70 94 09/09/22 08:00 09/09/22 07:32 86 09/09/22 07:30 37.1 C 91 H 16 120/69 95 09/09/22 04:00 37 C 80 16 121/70 94 O2 Del Method 09/09/22 11:46 Room Air 09/09/22 08:00 Room Air 09/09/22 07:32 09/09/22 07:30 Room Air 09/09/22 04:00 Room Air (1) Hematemesis Nausea presence: with nausea Qualified Code(s): K92.0 - Hematemesis
[2022-09-10] MEDS: HYDROmorphone INJ 1 MG/ML SYRINGE IV SCH ×3 (00:22→16:35)
[2022-09-10] MEDS: HYDROmorphone INJ 1 MG/ML SYRINGE IV PRN ×5 (03:58→22:52)
[2022-09-10 07:45] LABS: Basophils # (auto) 0.03 K/uL (0-0.2); Basophils % (auto) 0.3 %; Eosinophils # (auto) 0.04 K/uL (0-0.50); Eosinophils % (auto) 0.4 %; Hematocrit (blood only) 28.2 % (42.0-52.0); Hemoglobin 9.8 g/dl (14.0-18.0); Immature Granulocytes # (auto) 0.08 K/uL (0.01-0.20); Immature Granulocytes % (auto) 0.8 %; Lymphocytes % (auto) 7.1 %; Mean Corpuscular Hgb Conc 34.8 g/dL (32.0-36.0); Mean Corpuscular Volume 77.7 fL (80.0-100.0); Mean Platelet Volume 11.2 fL (9.4-12.4); Monocytes # (auto) 1.03 K/uL (0.11-0.59); Monocytes % (auto) 10.4 %; Neutrophils # (auto) 8.04 K/uL (1.40-6.50); Platelet Count 151 K/uL (130-400); RDW Coefficient of Variation 13.8 % (11.5-14.5); RDW Standard Deviation 38.8 fL (36.4-46.3); Red Blood Count 3.63 M/uL (4.70-6.10); White Blood Count 9.92 K/ul (4.8-10.8)
[2022-09-10] MEDS: POT PHOSPHATE MONOBASIC W/ SOD TAB PO SCH ×4 (08:06→21:28)
[2022-09-10] MEDS: FOLIC ACID 1 MG TAB PO SCH (08:07)
[2022-09-10] MEDS: PANTOprazole 40 MG TAB PO SCH ×2 (08:07→21:28)
[2022-09-10] MEDS: GABAPENTIN 300 MG CAP PO SCH ×2 (08:07→21:28)
[2022-09-10] MEDS: INSULIN ASPART PER UNIT SC SCH ×4 (08:17→21:27)
[2022-09-10 08:57] LABS: Partial Thromboplastin Ratio 1.1; Partial Thromboplastin Time 30.3 Seconds (21.0-31.0)
--- NOTE | 2022-09-10 09:16 | Communication Note ---
Date of Service: September 10, 2022 Dr. Young has communicated with me that the patient would like to continue palliative radiation therapy until he is discharged from the hospital and would then like to go home on hospice with no further radiation therapy. I have modified our treatment fractionation to 400 cGy per fraction for 5 fractions in order to give more effective palliative radiation therapy while the patient is still admitted to the hospital. Yesterday, he did receive 1 fraction of radiation therapy at 200 cGy with the previous assumption for a protracted course of radiation therapy with chemotherapy. It is reasonable to increase the dose per fraction given the fact that the patient is not taking any chemotherapy. We will discontinue therapy when the patient is discharged from the hospital with a full understanding the patient may not receive the full course of palliative radiation therapy.
--- NOTE | 2022-09-10 09:50 | Palliative Care Progress Note ---
Date of Service September 09, 2022 LATE ENTRY NOTE COMPLETED 09/10 FOR VISIT DONE 09/09/22 Assessment & Plan (1) Palliative care encounter: Plan: Met with pt/family. Provided overview of Palliative Medicine, a subspecialty that provides specialized medical care for people living with a serious illness by offering a focus on quality of life. Palliative Medicine is often conflated with hospice: I advised patient/family that Palliative and hospice can be partners but we are not the same. It is important to understand the difference so that we may be informed, and not afraid. Palliative Medicine works to improve QOL through reduction of symptom burden/more control over their illness, for both the patient and family. Palliative medicine clinicians are board certified, specially-trained and another member of the patient's medical care team. We often provide an extra layer of support because our care is based on the needs of the patient, not the prognosis; as such, it's appropriate at any age/advancing stage of a serious illness and can be provided along with curative treatment. Palliative Medicine clinicians are also trained in advanced communication methodologies, to facilitate complex discussions about advanced illness planning, which are needed to help assure that the treatment choices match the patient's goals, aka delivering Goal Concordant care. Finally, we discussed that hospice is a visiting nurse service that focuses on care delivered at the very end of life for patients with terminal illness, with life expectancy less than 6 month. We also discussed that cancer patients experience significant symptom and psychosocial burden for which the early integration of supportive oncology with palliative medicine (early findings from the research of Kyrie and Kike) help address a growing need to manage patients comprehensively, with an emphasis on symptom control, nutritional and psychosocial support, and pharmaceutical review. Palliative care consultation in patients with advanced cancer is not only associated with an improvement in the quality of oncology care, but also a reduction in downstream healthcare utilization. In Nikolas et al 2017, when the automatic palliative medicine consult was triggered by specific oncology criteria, 30-day readmission rates and use of chemotherapy after discharge declined, whereas hospice referrals and uptake of support services post- discharge increased. Patients with advanced cancer admitted to an acute care hospital often have short life expectancies and high morbidity - for these patients, the integration of palliative care has improved symptom burden, reduced patient and caregiver distress, increased referral to hospice, and improved QOL outcomes. (2) Cancer related pain: Plan: Michael starts RT today. He has not yet been seen by our Interventional pain group. He is happy with current pain regimen, the scheduled Dilaudid has improved relief and the dose adjusted BTP option is giving better relief. (3) Advanced care planning/counseling discussion: Plan: 30-minute discussion was held at the bedside with patient, his and son. Patient and his tell me that they have decided they would like to be discharged home with hospice when he is ready to leave the hospital. Patient does not want to come back and forth to the hospital for continued interventions such as pain management appointments, radiation therapy etc. He states that the ride in the car, of any duration, is extremely painful and uncomfortable and he does not wish to pursue these interventions given his overall poor prognosis and mortality outcomes. He has made his peace with his mortality, has connected with and spoken with friends and family that he felt he needed to have closure with and he is ready to focus on this final chapter of life being home with his family and focusing what matters most to him. His and son are extremely supportive of this decision and verbalized their support during this discussion. is able to provide care for him at home and has support with their children and additional friends and family. They are not aware of what hospice agency they would like but would like to converse with care management about options. 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 I advised her this ultimately comes down to the decision the hospice that is able to take on their case in their region as not all hospice is off her IV opioid management services. I will connect with case management about this. I have provided education about the hospice benefit. Hospice is an interdisciplinary program offered by nurses, nurses aides, social workers, chaplains and a certified medical transcriptionist for patients with a terminal condition and a life expectancy of less than 6 months. The goal would be to improve the quality of life of the patient in their home setting (home, detention, inpatient hospice setting) by providing symptoms management, psychosocial and spiritual support. However, they cannot offer 24 hours care and if the family is unable to provide that care, they will have to consider personal care with out of pocket cost vs. detention placement. Plan of care was reviewed in detail. Patient and family firm agreement with the plan of care outlined above and all questions have been answered to their apparent satisfaction. (4) Abdominal pain, generalized: (5) Celiac plexus syndrome: Plan: Awaiting pain management consult. 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 Case management has been notified. Primary team is aware. He and are interested in discharging home on a Dilaudid GENERAL I FARMWORKER as he feels that this has provided improved pain relief. We will await care management assistance to determine if home hospice can accommodate this request for patient and his family. Await pain mgt consult - ?celiac plexus block candidate Patient does not wish to come back to the hospital for any continued appointments as outlined above advance care planning discussion. He is starting radiation therapy today and has had reasonable relief with the pain management changes we instituted on Friday. For now I will make no changes as there is a potential plan to get him home with a Dilaudid infusion. Therefore moving him to p.o. medications at this time is not warranted. Extensive psychosocial support and reassurance was provided. Patient has taken great steps independently to address any concerns he has at today's end-of-life stage. He is connected with friends and family from home he may have had some tense relationships and tells me that he has made his peace with everyone he felt he needed to do so with he is excepting of his mortality and states he has come to peace with this, knowing that he is going to have an and having no burden on his heart his family is extremely supportive as well. Patient also demonstrates a great amount of responsibility and accountability by sharing with me that he also asked his family to remove from their house any weapons including firearms and knives to assure that should his pain worsen he does not get tempted to inflict any harm on himself and because he did some research and discovered there are potentials of things such as terminal delirium and agitation that may cause him to be behaviorally different than his usual baseline and he did not want to do anything, even a delirious state, that may cause harm or traumatize his family. Patient assured about commitment to provide ongoing pain and symptom management as well as ongoing support for him and his family to assure that he has a peaceful end-of-life journey. I will continue to follow. Radha Herron DNP Clinical Director, Palliative Medicine Admission and Anticipated Discharge Date Admission Date: September 04, 2022 Subjective Patient resting in bed, and son bedside Pain is better with scheduled IV Dilaudid and prn is being used. his appetite is better, he has kept food and drink down for >48hr abd still distended, +flatus RT begins today Review of Systems Review of Systems: All systems reviewed & are unremarkable except as noted in Subjective Physical Exam Physical Exam: Cachectic, chronically seriously ill male, lying in bed. Mod distress. +occasional grimacing with any movement or coughing. Bitemporal wasting noted. PERRLA bilaterally, EOMI is intact. Pharynx slightly dry with fair dentition. Mucosa +slightly dry, no obvious thrush noted. Neck is supple, no JVD, thyromegaly or stridor noted. Respiratory effort is normal at rest and there is no conversational dyspnea. Lungs are clear on this limited anterior exam although mildly diminished overall. There is no obvious wheeze or coarse rhonchi noted. Heart tones are normal S1S2, no gross murmur. Abdomen is distended, tender to touch and firm. There is tenderness that begins at the epigastric region on palpation and continues down along both sides of his abdomen around to the flanks the mid axillary line. When pressed at the epigastric region his pain will radiate into his back in a direct manner. Generalized weakness is noted. Strength is diminished. He has some muscle atrophy noted. Skin is pale. Cool to touch. Mood is more engaged. +AAOx3 Results & Data ([facility]) Vital Signs (Past 12 Hours) Vital Signs Temp Pulse Pulse Resp BP Pulse Ox O2 Del Method 09/10/22 08:55 37.0 C 78 18 116/70 91 Room Air 09/10/22 07:42 Room Air 09/10/22 05:59 88 09/10/22 00:00 96 H 09/10/22 03:00 37 C 93 H 18 125/75 96 Room Air 09/09/22 22:52 38.1 C H 83 20 134/66 95 Room Air Laboratory Results reviewed Diagnostic Findings reviewed PG Care Time/CCT Total # of Minutes Spent Total Time Spent: 65 Total Time Spent with Patient: Total time spent is greater than 50% in coordination of care (as documented) at patient's floor/unit and/or counseling patient: 5 min chart review 15min pt exam 30 min ACP family meeting 5 min coordination of care/reviewing the plan of care 10 min updating nursing, CM, primary team Advanced Care Planning 02718 Advanced Care Planning 30 Min [place] [address] SUB INP/OBS CARE 3/50MIN Patient Type Established History Comprehensive Exam Detailed Medical Decision Making High Complexity Diagnoses Palliative care encounter Z51.5 Cancer related pain G89.3 Advanced care planning/counseling discussion Z71.89 Abdominal pain, generalized R10.84 Celiac plexus syndrome G54.8 Carcinoma of pancreas metastatic to liver C25.9; C78.7 Splenic vein thrombosis I82.890 Additional Codes Advanced Care Planning - 91467 Advanced Care Planning 30 Min: 90431 Advanced Care Planning 30 Min ([id number])
--- NOTE | 2022-09-10 18:02 | Hospitalist Progress Note ---
Date of Service September 10, 2022 Assessment & Plan (1) Hematemesis: (2) 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 Ongoing nausea, vomiting, decreased appetite, upper abdominal pain since 06/2022. He is being managed for the following: Hematemesis: 09/04/2022 CT abdomen pelvis with IV contrast : "Significant interval worsening of the pancreas shins primary pancreatic malignancy along with marked worsening of hepatic metastatic disease, development of pulmonary metastatic disease, and mildly increased neoplastic retroperitoneal adenopathy. Thrombosis of the splenic vein is again present mildly increased from previously." (Copy of re port from [facility] ER) 09/04/2022 copy of labs with WBC: 14.5, H/H: 13.1/38.2, PLT: 191, NA: 140, lactate: 1.4, T. bili: 1.6, AST: 56, ALT: 36, alk phos: 310, lipase: 33 At presentation in ER, vital stable. H/H 13.9/40, PLT: 212, INR: 1.2, BUN: 16, Cr: 0.5, T. bili: 2.0, AST: 50, ALT: 34, alk phos: 323 Pt w/ no further hematemesis, HnH stable around 9.5, c/w PO protonix. GI evaled, s/p EGD 09/05 w/ finding of nl esophagus, gastritis +, duodenitis +, non bleeding duodenal ulcer. Rec is bid protonix for 3 months and then daily. follow HnH every 12 hours or as needed, diet as elsie, use nausea meds prn. Abdominal pain: Splenic vein thrombosis: Pancreatic cancer: Recent diagnosis pancreatic cancer with metastasis to liver in 07/2022 Is following with oncologist, Dr. Lubin in [place]. Radiation oncology at [facility], Dr. Man Is to start receiving palliative chemotherapy and radiation on 09/09/22. Patient brought his capecitabine with him Palliative care consult, appreciate recs hep drip started 09/05, -- blackish BM daily leading upto 09/08, will hold hep drip. Eliquis costs him $50.55 a month. Decision was made w/ family not to start him on eliquis. c/w pain Mx. Oncology and radiation for guidance w/ palliative chemo/radiation -- recs is for palliative radiation this time; appreciate recs from both. d/w pt and his 09/09, plan to continue pall radiation only while in hospital and go home w/ hospice; same has been communicated to the radiation team. Upon DC, they wouldn't like to continue w/ radiation. (5) Hyponatremia: likely 2/2 poor appetite, monitor. Improving. (6) Diabetes mellitus, type II: Plan: Has not been taking medications secondary to N/V/abdominal pain, decreased oral intake Hold home oral diabetes medicine NovoLog sliding scale per protocol A1c in a.m. (7) HTN (hypertension): Plan: Not been taking BP medication secondary to poor oral intake BP stable Hold lisinopril (8) Pacemaker: Plan: Pacemaker in place DVT Prophylaxis SCDs for now DNR/DNI Follows with PCP: [facility] for routine care Dispo: Palliative and Pain Mx eval ongoing, await pain mx eval. Admission and Anticipated Discharge Date Admission Date: September 04, 2022 Subjective Patient seen and examined at bedside as a follow-up of hematemesis on the background of metastatic pancreatic cancer. Patient was lying in bed, on room air, NAD, reports no new acute event o vernight, reports pain slightly more today and has not eaten breakfast in AM, denies any further vomiting while in the hospital, reports no nausea, has no recent bowel movement, denies headache or dizziness, denies pain or burning while passing urine. Had a recording of fever overnight, none in AM, will continue to monitor. Pt's at bedside, updated on pt's current status. Discussed about pros and cons of blood thinner; given his current status and poor prognosis and risk of bleeding/gi bleed, she decided to not use blood thinner. I think it is prudent choice. Plan is to focus on mainly pain control per her. Physical Exam Physical Exam: GENERAL: Alert and oriented x3. NAD, on RA. Chronically ill/weak appearing. HEENT: No pallor, no icterus. Pupils equal, round and reactive to light. Oral mucosa moist. NECK: No JVD, no neck masses. HEART: S1 and S2 heard. Regular rate and rhythm. No murmur, no gallop. RESPIRATORY SYSTEM: Normal AP diameter. No accessory muscle use. No wheezing, no crackles. ABDOMEN: Soft, bowel sounds present, tender RUQ/Epigastric/LUQ, no distention. CENTRAL NERVOUS SYSTEM: No facial droop. Speech is clear. Obeys simple commands. Moves extremities. EXTREMITIES: No edema, no erythema seen. Results & Data Results & Data ([facility]) Vital Signs (Past 12 Hours) Vital Signs Temp Pulse Pulse Resp BP Pulse Ox O2 Del Method 09/10/22 14:18 97 H 09/10/22 15:15 36.8 C 97 H 18 125/71 96 Room Air 09/10/22 11:27 36.8 C 79 18 121/68 95 Room Air 09/10/22 08:55 37.0 C 78 18 116/70 91 Room Air 09/10/22 07:42 Room Air 09/10/22 05:59 88 (1) Hematemesis Nausea presence: with nausea Qualified Code(s): K92.0 - Hematemesis
[2022-09-11] MEDS: HYDROmorphone INJ 1 MG/ML SYRINGE IV SCH ×4 (00:21→23:50)
[2022-09-11] MEDS: HYDROmorphone INJ 1 MG/ML SYRINGE IV PRN ×6 (02:41→22:06)
[2022-09-11 07:09] LABS: Hemoglobin 9.6 g/dl (14.0-18.0); Mean Corpuscular Hemoglobin 27.1 pg (25.0-34.0); Mean Corpuscular Hgb Conc 34.3 g/dL (32.0-36.0); Mean Corpuscular Volume 79.1 fL (80.0-100.0); Mean Platelet Volume 11.4 fL (9.4-12.4); Platelet Count 146 K/uL (130-400); RDW Coefficient of Variation 13.4 % (11.5-14.5); RDW Standard Deviation 38.4 fL (36.4-46.3); Red Blood Count 3.54 M/uL (4.70-6.10); White Blood Count 10.93 K/ul (4.8-10.8)
[2022-09-11 07:36] LABS: Anion Gap 7 (3-11); BUN Creatinine Ratio 35.1 (10-20); Blood Urea Nitrogen 13 mg/dl (6-23); Calcium 8.2 mg/dl (8.5-10.1); Carbon Dioxide 28 mmol/L (21-32); Chloride 96 mmol/L (98-107); Creatinine Clr Calc Pharmacy 184.4 ml/min; Est GFR (African American) > 150.0 ml/min; Est GFR (Non-African American) 130.5 ml/min; Glucose 168 mg/dl (70-99(Fasting)); Magnesium 1.9 mg/dl (1.7-2.4); Phosphorus 3.5 mg/dl (2.5-4.9); Potassium 3.7 mmol/L (3.5-5.1); Sodium 131 mmol/L (136-145)
[2022-09-11 07:54] LABS: Partial Thromboplastin Ratio 1.1; Partial Thromboplastin Time 29.9 Seconds (21.0-31.0)
[2022-09-11] MEDS: INSULIN ASPART PER UNIT SC SCH ×4 (08:44→20:47)
[2022-09-11] MEDS: GABAPENTIN 300 MG CAP PO SCH ×2 (08:45→20:47)
[2022-09-11] MEDS: PANTOprazole 40 MG TAB PO SCH ×2 (08:45→20:47)
[2022-09-11] MEDS: FOLIC ACID 1 MG TAB PO SCH (08:45)
[2022-09-11] MEDS: POT PHOSPHATE MONOBASIC W/ SOD TAB PO SCH (08:45)
--- NOTE | 2022-09-11 09:49 | Pain Management Consultation ---
Date of Consultation September 11, 2022 Assessment & Plan (1) Cancer related pain: (2) Carcinoma of pancreas metastatic to liver: (3) Acute upper abdominal pain: (4) Splenic vein thrombosis: (5) Pancreatic cancer: Plan Patient would be a good candidate for a Celiac Plexus Nerve Block. Risks and benefits were reviewed with the patient. Procedure was explained and he would like to proceed. There is plan to discharge likely tomorrow so our office will coordinate with him and his on scheduling for the procedure. He will continue his current medication regimen for now. History of Present Illness Reason for Consultation: Cancer related pain Attending Physician: Tyra Young MD History of Present Illness This is a 62-year-old male that was found to have pancreatic cancer with metastasis to the liver diagnosed 1 month ago. He is undergoing radiation oncology and palliative chemotherapy. There is plan to discharge him on hospice. Patient does describe a constant aching pain along the upper abdomen. No radiation of pain to the lower abdomen or into the flank. Pain is rated 2/10 at its best and 9/10 at its worst. He is receiving Dilaudid IV which is adequately controlling his pain for about 3 to 4 hours at a time. He does report drowsiness with the medication. No constipation, able to move his bowels daily. Case discussed with Dr. Kim Vásquez Allergies Allergy/AdvReac Type Severity Reaction Status Date / Time No Known Drug Allergies Allergy Verified 08/27/22 13:12 Home Medications Medication Instructions Recorded Confirmed Type empagliflozin 25 mg tablet 25 mg PO DAILY 08/27/22 09/04/22 History (Jardiance) lisinopril 2.5 mg tablet 2.5 mg PO DAILY 08/27/22 09/04/22 History lorazepam 0.5 mg tablet 0.25 mg PO BID PRN Anxiety 08/27/22 09/04/22 History metformin 850 mg tablet 850 mg PO BID 08/27/22 09/04/22 History nitroglycerin 0.4 mg sublingual 0.4 mg sublingual Q5M PRN Chest 08/27/22 09/04/22 History tablet Pain ondansetron HCl 4 mg tablet 4 mg PO Q8H PRN Nausea 08/27/22 09/04/22 History oxycodone 10 mg tablet 10 mg PO Q4H PRN pain,severe 08/27/22 09/04/22 History pantoprazole 40 mg tablet,delayed 40 mg PO DAILY 08/27/22 09/04/22 History release capecitabine 500 mg tablet 1,000 mg PO BID 09/04/22 09/04/22 History apixaban 5 mg (74 tabs) tablets in 5 mg PO BID #74 ea 09/06/22 Rx a dose pack (Eliquis) Patient History Medical History (Updated 09/09/22 @ 08:19 by Sunitha Peres PA-C) Abdominal pain, generalized Advanced care planning/counseling discussion Cancer related pain Celiac plexus syndrome Diabetes mellitus, type II Pacemaker Palliative care encounter Pancreatic cancer metastasis to liver Surgical History History of removal of cyst (2020) Back of neck Status post fine needle aspiration (08/14/22) Liver, Endoscopic Needle Aspiration + Celiac Plexus Neurolysis Dr. Tricia Elam at [facility] [place] Status post rotator cuff repair Left Family History Father No problems noted. Mother Cancer patient unsure of type Sister No problems noted. Brother No problems noted. Brother No problems noted. Son No problems noted. Daughter No problems noted. Daughter No problems noted. Social History Smoking Status: Former smoker Tobacco Type: Cigarettes Age Started Using Tobacco: 15; packs per day: 1; Second Hand Exposure: Yes (parents smoked in home and ); Hx Alcohol Use: No Hx Substance Use: No Preferred Language: Syriac Communication Ability: Effective Visual Impairment: No Limitations Hearing Ability: Normal Bobbin Fixer Required: No Beliefs That Will Affect Care: None marital status: Current Living Situation: Spouse and Other Current Living Situation Comment: lives with and son current occupational status: retired current occupation: Retired [employer] How many Children do You have: 3 Feels Safe at Home: Yes caffeine: No Dental Care, Regularly: No Assistive Devices: None Physical Exam Physical Exam: GENERAL: This is a 62 year old male that is resting comfortably in the hospital bed, laying supine. HEAD/FACE: Normocephalic and atraumatic. EYES: No drainage or conjunctival injection. ENT: Nose without bleeding or discharge. Oral mucosa moist. RESPIRATORY: Patient with unlabored breathing. No signs of respiratory distress. CHEST/AXILLA: Chest movement symmetrical. No deformities noted. ABDOMEN/GI: Mildly distended. There is diffuse upper abdominal tenderness. No rebound tenderness or guarding. No peritoneal signs. No CVA tenderness. BACK: Moves without difficulty SKIN: [place], warm and dry. No rash noted. MS/EXTREMITY: No swelling, no deformities. Moving extremities appropriately. NEURO: Alert and appears oriented. Speech is fluent. Cranial Nerves are grossly intact. PSYCH: Alert, pleasant, affect is calm
[2022-09-11] MEDS ORDERED: HYDROmorphone INJ 1 MG/ML SYRINGE IV PRN (14:31)
[2022-09-11] MEDS ORDERED: HYDROmorphone INJ 2 MG/ML SYR/VIAL IV STA (14:33)
--- NOTE | 2022-09-11 14:42 | Palliative Care Progress Note ---
Date of Service September 11, 2022 Assessment & Plan (1) Palliative care encounter: (2) Cancer related pain: Plan: very severe cancer pain currently using Dilaudid 10mg IV per day without relief, pain remains 8-10/10 Dilaudid 10mg / day = Dilaudid 0.42mg/hr without relief He will be started on PROCESS CONTROL BOARD OPERATOR when he arrives at home tomorrow, [employer] is going to bring everything to the house. FOR HOSPICE PROCESS CONTROL BOARD OPERATOR ORDER, PLEASE ORDER: DILAUDID PA LOADING DOSE 2MG, CONTINUOUS DOSE 0.7MG/HR WITH PROCESS CONTROL BOARD OPERATOR DEMAND BOLUS OF 0.5MG Q10MIN PRN BREAKTHROUGH CANCER PAIN/THIS IS A HOME HOSPICE PATIENT. Will give Dilaudid 2mg IV x 1 now Will increase prn doses to: Dilaudid 2mg IV q2h prn severe to very severe pain and Dilaudid 1.5mg q2h prn moderate pain. New orders written. (3) Abdominal pain, generalized: (4) Splenic vein thrombosis: Plan Last RT tomorrow Home with hospice tomorrow after RT Hospice to start Dilaudid PROCESS CONTROL BOARD OPERATOR, order reccs above Stat dose Dilaudid given x1 now for uncontrolled 10/10 cancer pain Admission and Anticipated Discharge Date Admission Date: September 04, 2022 Subjective very distressed, reports 10/10 pain, no relief with Dilaudid 1.5mg Went for RT and the process was more painful with positioning home with hospice tomorrow, they are starting a PROCESS CONTROL BOARD OPERATOR at home Review of Systems Review of Systems: All systems reviewed & are unremarkable except as noted in Subjective Physical Exam Physical Exam: Cachectic, chronically seriously ill male, lying in bed. Severe distress. +moaning, grimacing, holding his abdomen. Bitemporal wasting noted. PERRLA bilaterally, EOMI is intact. Pharynx slightly dry with fair dentition. Mucosa +slightly dry, no obvious thrush noted. Neck is supple, no JVD, thyromegaly or stridor noted. Respiratory effort is normal at rest and there is no conversational dyspnea. Lungs are clear on this limited anterior exam although mildly diminished overall. There is no obvious wheeze or coarse rhonchi noted. Heart tones are normal S1S2, no gross murmur. Abdomen is distended, very tender to touch and firm. There is tenderness that begins at the epigastric region on palpation and continues down along both sides of his abdomen around to the flanks the mid axillary line. When pressed at the epigastric region his pain will radiate into his back in a direct manner. Generalized weakness is noted. Strength is diminished. He has some muscle atrophy noted. Skin is pale. Cool to touch. Mood is more engaged. +AAOx3 Results & Data ([facility]) Vital Signs (Past 12 Hours) Vital Signs Temp Pulse Pulse Resp BP Pulse Ox O2 Del Method 09/11/22 08:15 37.3 C 91 H 18 125/69 93 Room Air 09/11/22 05:59 97 H 09/11/22 03:10 36.8 C 92 H 20 139/73 97 Room Air 09/11/22 02:42 18 Laboratory Results reviewed Diagnostic Findings reviewed PG Care Time/CCT Total # of Minutes Spent Total Time Spent: 48 Total Time Spent with Patient: Total time spent is greater than 50% in coordination of care (as documented) at patient's floor/unit and/or counseling patient: C[place] [address] SUB INP/OBS CARE 3/50MIN Patient Type Established History Comprehensive Exam Comprehensive Medical Decision Making High Complexity Diagnoses Palliative care encounter Z51.5 Cancer related pain G89.3 Abdominal pain, generalized R10.84 Splenic vein thrombosis I82.890
[2022-09-11] MEDS ORDERED: HYDROmorphone INJ 1 MG/ML SYRINGE IV STA (14:47)
--- NOTE | 2022-09-11 14:47 | Hospitalist Progress Note ---
Date of Service September 11, 2022 Assessment & Plan (1) Hematemesis: (2) 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 Ongoing nausea, vomiting, decreased appetite, upper abdominal pain since 06/2022. He is being managed for the following: Hematemesis: 09/04/2022 CT abdomen pelvis with IV contrast : "Significant interval worsening of the pancreas shins primary pancreatic malignancy along with marked worsening of hepatic metastatic disease, development of pulmonary metastatic disease, and mildly increased neoplastic retroperitoneal adenopathy. Thrombosis of the splenic vein is again present mildly increased from previously." (Copy of re port from [facility] ER) 09/04/2022 copy of labs with WBC: 14.5, H/H: 13.1/38.2, PLT: 191, NA: 140, lactate: 1.4, T. bili: 1.6, AST: 56, ALT: 36, alk phos: 310, lipase: 33 At presentation in ER, vital stable. H/H 13.9/40, PLT: 212, INR: 1.2, BUN: 16, Cr: 0.5, T. bili: 2.0, AST: 50, ALT: 34, alk phos: 323 Pt w/ no further hematemesis, HnH stable around 9.5, c/w PO protonix. GI evaled, s/p EGD 09/05 w/ finding of nl esophagus, gastritis +, duodenitis +, non bleeding duodenal ulcer. Rec is bid protonix for 3 months and then daily. follow HnH every 12 hours or as needed, diet as elsie, use nausea meds prn. Abdominal pain: Splenic vein thrombosis: Pancreatic cancer: Recent diagnosis pancreatic cancer with metastasis to liver in 07/2022 Is following with oncologist, Dr. Lubin in [place]. Radiation oncology at [facility], Dr. Man Is to start receiving palliative chemotherapy and radiation on 09/09/22. Patient brought his capecitabine with him Palliative care consult, appreciate recs hep drip started 09/05, -- blackish BM daily leading upto 09/08, will hold hep drip. Eliquis costs him $50.55 a month. Decision was made w/ family not to start him on eliquis. c/w pain Mx. Patient is still with dark bowel movements. Oncology and radiation for guidance w/ palliative chemo/radiation -- recs is for palliative radiation this time; appreciate recs from both. d/w pt and his 09/09, plan to continue pall radiation only while in hospital and go home w/ hospice; same has been communicated to the radiation team. Upon DC, they wouldn't like to continue w/ radiation. Plan for DC to home with hospice tomorrow at 1100 hrs. Pain management evaluated, patient to follow-up with pain clinic for celiac plexus nerve block. (5) Hyponatremia: likely 2/2 poor appetite, monitor. Improving. (6) Diabetes mellitus, type II: Plan: Has not been taking medications secondary to N/V/abdominal pain, decreased oral intake Hold home oral diabetes medicine NovoLog sliding scale per protocol (7) HTN (hypertension): Plan: Not been taking BP medication secondary to poor oral intake BP stable Hold lisinopril (8) Pacemaker: Plan: Pacemaker in place DVT Prophylaxis SCDs for now DNR/DNI Follows with PCP: [facility] for routine care Dispo: To home with hospice tomorrow Admission and Anticipated Discharge Date Admission Date: September 04, 2022 Subjective Patient seen and examined at bedside as a follow-up of hematemesis on the background of metastatic pancreatic cancer. Patient was lying in bed, on room air, NAD, reports no new acute event overnight, reports pain about the same/on the "more" side today and is eating appropriately per him, denies any further vomiting while in the hospital, reports no nausea, continues to have black bowel movement, denies headache or dizziness, denies pain or burning while passing urine. 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 Per RN, pt for radiation at 0750 hours tomorrow. Physical Exam Physical Exam: GENERAL: Alert and oriented x3. NAD, on RA. Chronically ill/weak appearing. HEENT: No pallor, no icterus. Pupils equal, round and reactive to light. Oral mucosa moist. NECK: No JVD, no neck masses. HEART: S1 and S2 heard. Regular rate and rhythm. No murmur, no gallop. RESPIRATORY SYSTEM: Normal AP diameter. No accessory muscle use. No wheezing, no crackles. ABDOMEN: Soft, bowel sounds present, tender RUQ/Epigastric/LUQ, no distention. CENTRAL NERVOUS SYSTEM: No facial droop. Speech is clear. Obeys simple commands. Moves extremities. EXTREMITIES: No edema, no erythema seen. Results & Data Results & Data ([facility]) Vital Signs (Past 12 Hours) Vital Signs Temp Pulse Pulse Resp BP Pulse Ox O2 Del Method 09/11/22 08:15 37.3 C 91 H 18 125/69 93 Room Air 09/11/22 05:59 97 H 09/11/22 03:10 36.8 C 92 H 20 139/73 97 Room Air 09/11/22 02:42 18 (1) Hematemesis Nausea presence: with nausea Qualified Code(s): K92.0 - Hematemesis
[2022-09-12] MEDS: HYDROmorphone INJ 1 MG/ML SYRINGE IV PRN ×3 (05:03→10:41)
[2022-09-12] MEDS: HYDROmorphone INJ 1 MG/ML SYRINGE IV SCH (07:38)
[2022-09-12] MEDS: INSULIN ASPART PER UNIT SC SCH (08:06)
[2022-09-12] MEDS: GABAPENTIN 300 MG CAP PO SCH (08:49)
[2022-09-12] MEDS: PANTOprazole 40 MG TAB PO SCH (08:49)
[2022-09-12] MEDS: FOLIC ACID 1 MG TAB PO SCH (08:49)
--- NOTE | 2022-09-12 10:34 | Discharge Summary ---
Date of Service September 12, 2022 Admission HPI Per Admitting Provider Patient is 62-year-old male with PMH recently diagnosed pancreatic cancer metastasis to liver diagnosed in 07/2022, DM II, s/p pacemaker presented to ER with complaint of episode of hematemesis today. History obtained from patient, patient's and chart review. Patient states has been having nausea, intermittent vomiting, upper abdominal pain since June 2022. Often has dry heaves. Lost 35 pounds since 06/2022. He states he saw GI, Dr. Lara in [place]. reports he had a EUS to confirm diagnosis. 2 days ago did not have any vomiting, yesterday had several episodes of vomiting. He started taking oxycodone for abdominal pain. This morning had episode of vomiting with noted red blood in emesis. No further hematemesis. He has been having worsening upper abdominal pain. Not been eating or drinking. He has not been taking any medications except for oxycodone. He tried taking Zofran several days ago. Is following with oncologist, Dr. Lubin from. Following with radiation oncology at [facility], Dr. Man. Is to start receiving palliative chemotherapy and radiation on 09/09/22. Denies fever/chills, diaphoresis, melena, hematochezia, diarrhea, constipation, DUPREE, dizziness, syncope, vision changes, neck pain, CP, SOB, orthopnea, palpitations, cough, sore throat, choking, otalgia, rhinorrhea, extremity weakness, extremity edema, rashes, urinary symptoms. Today was seen at [facility] ER and had CT abdomen pelvis with IV contrast. brings copy of CT abdomen pelvis report with Impression "Significant interval worsening of the pancreas shins primary pancreatic malignancy along with marked worsening of hepatic metastatic disease, development of pulmonary metastatic disease, and mildly increased neoplastic retroperitoneal adenopathy. Thrombosis of the splenic vein is again present mildly increased from previously. Also copy of labs with WBC: 14.5, H/H: 13.1/38.2, PLT: 191, NA: 140, lactate: 1.4, T. bili: 1.6, AST: 56, ALT: 36, alk phos: 310 Patient states that they offered to transfer him to tertiary care facility however he denied. He had follow-up with his oncologist today who had recommended coming to an [facility]. Patient states is to have palliative care a ppointment tomorrow. Admission Exam Per Admitting Provider General: chronic ill appearing male, appears older than stated age, in mild distress secondary to abdominal pain, WDWN Head: normocephalic, atraumatic Eyes: conjunctiva non-injected, anicteric ENT: normal inspection external ears, nose, mucous membranes dry Neck: supple, trachea midline Lungs: clear, no respiratory distress, no wheezing/rhonchi/rales CV: RRR, no murmur, no pretibial edema Abd: normal BS, soft, +tenderness to palpation RUQ, epigastric, LUQ Ext: no cyanosis, no calf tenderness Neuro: A&O x 3, no focal deficits noted, normal affect Skin: warm, dry Principal Diagnosis Hematemesis Metastatic pancreatic cancer Cancer related pain Splenic vein thrombosis Discharge Exam GENERAL: Alert and oriented x3. NAD, on RA. Chronically ill/weak appearing. HEENT: No pallor, no icterus. Pupils equal, round and reactive to light. Oral mucosa moist. NECK: No JVD, no neck masses. HEART: S1 and S2 heard. Regular rate and rhythm. No murmur, no gallop. RESPIRATORY SYSTEM: Normal AP diameter. No accessory muscle use. No wheezing, no crackles. ABDOMEN: Soft, bowel sounds present, tender RUQ/Epigastric/LUQ, no distention. CENTRAL NERVOUS SYSTEM: No facial droop. Speech is clear. Obeys simple commands. Moves extremities. EXTREMITIES: No edema, no erythema seen. Discharge Data Allergies Allergy/AdvReac Type Severity Reaction Status Date / Time No Known Drug Allergies Allergy Verified 08/27/22 13:12 Consultations 09/04/22 18:38 ED Decision to Admit Stat 09/04/22 20:38 Consult Palliative Care Routine 09/05/22 10:11 Consult Gastroenterology Routine 09/07/22 02:22 Consult Pain Management Routine 09/08/22 08:05 Consult Oncology Routine Consult Radiation Oncology Routine Procedures Performed Operation Date: 09/05/22 18:00 Actual Procedures p Esophagogastroduodenoscopy - Edinson Rushing MD Diabetes Follow up Diabetes Follow-up Needed for HgbA1c >9% Hospital Course (1) Hematemesis: (2) 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 Ongoing nausea, vomiting, decreased appetite, upper abdominal pain since 06/2022. He was managed for the following: Hematemesis: 09/04/2022 CT abdomen pelvis with IV contrast : "Significant interval worsening of the pancreas shins primary pancreatic malignancy along with marked worsening of hepatic metastatic disease, development of pulmonary metastatic disease, and mildly increased neoplastic retroperitoneal adenopathy. Thrombosis of the splenic vein is again present mildly increased from previously." (Copy of report from [facility] ER) 09/04/2022 copy of labs with WBC: 14.5, H/H: 13.1/38.2, PLT: 191, NA: 140, lactate: 1.4, T. bili: 1.6, AST: 56, ALT: 36, alk phos: 310, lipase: 33 At presentation in ER, vital stable. H/H 13.9/40, PLT: 212, INR: 1.2, BUN: 16, Cr: 0.5, T. bili: 2.0, AST: 50, ALT: 34, alk phos: 323 Pt w/ no further hematemesis, HnH stable around 9.5, c/w PO protonix on DC. GI evaled, s/p EGD 09/05 w/ finding of nl esophagus, gastritis +, duodenitis +, non bleeding duodenal ulcer. Rec is bid protonix for 3 months and then daily. Abdominal pain: Splenic vein thrombosis: Pancreatic cancer: Recent diagnosis pancreatic cancer with metastasis to liver in 07/2022 Is following with oncologist, Dr. Lubin in [place]. Radiation oncology at [facility], Dr. Man Is to start receiving palliative chemotherapy and radiation on 09/09/22. Patient brought his capecitabine with him Palliative care consult, appreciate recs due to ongoing black stool and Hb drop stabilizing after heparin drip held; d/w family including patient held and plan reached to not use anticoagulation at his point in his life to bring another new complication. c/w pain Mx. Oncology and radiation for guidance w/ palliative chemo/radiation -- recs is for palliative radiation this time; appreciate recs from both. Pain management evaluated, patient to follow-up with pain clinic for celiac plexus nerve block. Pt's Lizbeth aware. Pt being discharged w/ morphine and ativan for pain/anxiety/agitation until hospice takes over completely. (5) Hyponatremia: likely 2/2 poor appetite, monitor. Improving. (6) Diabetes mellitus, type II: Plan: Has not been taking medications secondary to N/V/abdominal pain, decreased oral intake Hold home oral diabetes medicine NovoLog sliding scale per protocol (7) HTN (hypertension): Plan: Not been taking BP medication secondary to poor oral intake BP stable (8) Pacemaker: Plan: Pacemaker in place DVT Prophylaxis SCDs for now DNR/DNI [facility] Patient being discharged to home with hospice with following instruction at the point of discharge: You are being discharged to home with hospice. Hospice plans to set a FITNESS DIRECTOR pump for your pain management at home. If you feel like you need further pain management, you can follow-up with pain management clinic as an outpatient as discussed by pain management team with you at bedside. You are being prescribed morphine and Ativan in case there is a problem with hospice set up as soon as you return home. As discussed at the bedside due to your ongoing black stool, we have decided not to treat you with any anticoagulation at this time. Home Health Attestation I certify that this patient is under my care and that I, or a physicians child development assistant working with me, had a face to-face encounter that meets the home health [id number] encounter requirements with this patient. The encounter with the patient was in whole, or in part, for the following medical condition, which is the primary reason for home health care (list medical condition): I certify that, based on my findings, the following services are medically necessary home health services: My clinical findings support the need for the above services because: Further, I certify that my clinical findings support that this patient is homebound (i.e. absences from home require considerable and taxing effort and are for medical reasons or sikhism services or infrequently or of short duration when for other reasons) because: Certification for Home Health Services: Based on the above findings, I certify that this patient is confined to the home and needs intermittent mcc care, physical therapy and/or speech therapy or continues to need occupational therapy. The patient is under my care, and I have initiated the establishment of the plan of care. This patient will be followed by a physician who will periodically review the plan of care. Total Time Total Time Spent Total Time Spent (In Minutes): 45 Discharge Plan Discharge Items Patient Disposition: Hospice - Home Reason For Visit: VOMITING BLOOD,REF BY DOC Discharge Diagnosis: Hematemesis Metastatic pancreatic cancer Cancer related pain Splenic vein thrombosis Condition on Discharge: Fair Activity: Resume your previous activity Non-emergency contact: Primary Care Provider and Pain Management Call non-emergency contact if: you have any medication questions Follow-up/Referrals: Annabelle Hale PA-C [Primary Care Provider] - Diet: Regular Addtl Attending Provider Instructions: You are being discharged to home with hospice. Hospice plans to set a FITNESS DIRECTOR pump for your pain management at home. If you feel like you need further pain management, you can follow-up with pain management clinic as an outpatient as discussed by pain management team with you at bedside. You are being prescribed morphine and Ativan in case there is a problem with hospice set up as soon as you return home. As discussed at the bedside due to your ongoing black stool, we have decided not to treat you with any anticoagulation at this time. Pending Studies at Discharge: No Stand-Alone Forms: My [facility] Medications and DC Order Prescriptions: New gabapentin 300 mg Capsule 300 mg PO BID 5 Days Qty: 10 0RF diclofenac sodium [Voltaren Arthritis Pain] 1 % Gel 4 g EXT Q6H PRN (Reason: b/l lateral thigh pain) Qty: 100 0RF pantoprazole 40 mg Tablet,Delayed Release (Dr/Ec) 40 mg PO BID Qty: 30 0RF folic acid 1 mg Tablet 1 mg PO QAM Qty: 30 0RF morphine concentrate 100 mg/5 mL (20 mg/mL) solution 5 mg PO Q4H PRN (Reason: pain (scale score 7-10)) Qty: 15 0RF lorazepam [Ativan] 0.5 mg tablet 0.5 mg PO Q4H PRN (Reason: anxiety/agitation) 3 Days Qty: 18 0RF Continued nitroglycerin 0.4 mg tablet, sublingual 0.4 mg sublingual Q5M PRN (Reason: Chest Pain) Rx Instructions: do not exceed 3 doses per episode Jardiance 25 mg tablet 25 mg PO DAILY pantoprazole 40 mg tablet,delayed release (DR/EC) 40 mg PO DAILY ondansetron HCl 4 mg tablet 4 mg PO Q8H PRN (Reason: Nausea) metformin 850 mg tablet 850 mg PO BID lisinopril 2.5 mg tablet 2.5 mg PO DAILY oxycodone 10 mg tablet 10 mg PO Q4H PRN (Reason: pain,severe) lorazepam 0.5 mg tablet 0.25 mg PO BID PRN (Reason: Anxiety) Discontinued capecitabine 500 mg tablet 1,000 mg PO BID Discharge Orders: Discharge Order (Routine); Ordered 09/12/22 Ordered By: Tyra Briggs/Other Patient Handouts: What Is Hospice?, Starting Hospice, Hospice Managing Pain, Hospice Care Dyspnea, Hospice: As Nears, Life Support, For Caregivers: Coping Tips Admission Data Admit Date/Time: 09/04/22 18:39 Attending Provider: Tyra Young Admit Provider: Nery Sainz Primary Care Provider: Annabelle Hale Other Providers: Nery Sainz ; Edinson Rushing ; Conrado Holder ; Erick Hernández ; [facility] ; Wan Barnhart Other Interventions: Discharge Summary Assessment (RN) Last Done: 09/12/22 10:22
== END 2022-09-12 10:46 | disposition hospice, home (50) | DRG 378 ==
LOC: ED 16:48 → 2N 18:39 → SUATTDRO 18:39 → 2N 20:05